=== PATIENT | male | born 1965 | race Caucasian/White ===

== ENCOUNTER → 2019-01-27 08:24 | Outpatient (CLI) | payer OTHER, SELFPAY ==
[2019-01-27 10:14] LABS: Add Manual Diff / Slide Review NO; Basophils Absolute Auto 0 /uL (0-100); Basophils Percent Auto 0.5 % (0-2); Eosinophils Absolute Auto 100 /uL (0-450); Eosinophils Percent Auto 2.6 % (2-4); Hematocrit 45.6 % (41-53); Hemoglobin 15.7 g/dL (13.5-17.5); Lymphocytes Absolute Auto 1700 /uL (1100-4500); Lymphocytes Percent Auto 34.1 % (25-40); Mean Corpuscular HGB Conc 34.5 % (30-36); Mean Corpuscular Hemoglobin 30.3 PG (26-34); Mean Corpuscular Volume 87.7 fL (80-100); Monocytes Absolute Auto 300 /uL (0-900); Monocytes Percent Auto 6.7 % (3-14); Neutrophils Absolute Auto 2800 /uL (1500-7000); Neutrophils Percent Auto 56.1 % (50-75); Platelet Count 259 X10^3/uL (150-400); Red Cell Distribution Width 13.3 % (11.6-14.8); White Blood Cell Count 4.9 X10^3/uL (4.5-11.0)
[2019-01-27 10:25] LABS: Alanine Aminotransferase 35 IU/L (21-72); Albumin 4.3 g/dL (3.5-5.0); Albumin Globulin Ratio 1.5 (1.0-2.8); Alkaline Phosphatase 49 U/L (38-126); Aspartate Aminotransferase 32 IU/L (17-59); BUN Creatinine Ratio 23.3 (6-22); Blood Urea Nitrogen 14 mg/dL (9-20); Calcium 9.3 mg/dL (8.4-10.2); Carbon Dioxide 25 mmol/L (22-32); Chloride 105 mmol/L (98-107); Cholesterol 151 mg/dL (140-199); Estimated Glomerular Filt Rate > 60.0 mL/min (>60); Globulin 2.9 g/dL (1.7-4.1); Glucose 92 mg/dL (70-100); HDL Cholesterol 43 mg/dL (40-60); HEMOLYSIS < 15 (0-50); LDL Cholesterol Calculated 94 mg/dL (<100); Potassium 3.7 mmol/L (3.4-5.1); Sodium 142 mmol/L (137-145); Total Protein 7.2 g/dL (6.3-8.2); Triglycerides 72 mg/dL (35-150)
[2019-01-27 10:52] LABS: TSH w/ Reflex to FT4 1.64 uIU/mL (0.47-4.68)
== END ==
PROVIDERS: PCP Internal Medicine; Visit Provider Nurse Practitioner
DX: G80.9 Cerebral palsy, unspecified (principal); J98.01 Acute bronchospasm; R06.2 Wheezing; R26.89 Other abnormalities of gait and mobility; J30.2 Other seasonal allergic rhinitis; Z87.09 Personal history of other diseases of the respiratory system; Z13.220 Encounter for screening for lipoid disorders; Z00.00 Encounter for general adult medical examination without abnormal findings; Z12.5 Encounter for screening for malignant neoplasm of prostate
CPT/HCPCS: 36415; 80053; 80061; 84153; 84443; 85025

== ENCOUNTER → 2020-11-13 12:29 | Outpatient (CLI) | payer OTHER, SELFPAY ==
[2020-11-13 13:24] LABS: COVID19 -Nasal RAPID Negative (Negative)
== END ==
PROVIDERS: PCP Nurse Practitioner; Referring Provider Internal Medicine; Visit Provider Internal Medicine
DX: Z20.822 Contact with and (suspected) exposure to COVID-19 (principal)
CPT/HCPCS: 87635; 94060; 94729; C9803

== ENCOUNTER → 2020-11-13 12:33 | Outpatient (CLI) | payer OTHER, SELFPAY ==
--- NOTE | 2020-11-19 09:56 | PM.PFT.1 ---
Pulmonary Function Test Referral & Results Date Patient Seen: 11/13/20 Requesting provider: Honey Franco Results: The spirometry demonstrates an FVC of 3.42 L which is 68% of predicted. The FEV1 was measured at 2.68 L which is 69% of predicted. The FEV1/FVC ratio was 78 which is 101% of predicted. Following the administration of bronchodilator there was no appreciable change. Lung volumes show an SVC of 2.69 L which is 55% of predicted. The diffusing capacity was measured at 36 which is 111% of predicted. The maximum voluntary ventilation was significantly reduced Interpretation: This study demonstrates mild obstructive lung disease based on reduction FEV1 although FEV1/FVC ratio is preserved and there is no evidence of benefit following bronchodilator There is a significant reduction in lung volumes with SVC being 55% of normal as above. Altogether there is evidence of probably severe neural muscular disease rather than any evidence of obstructive lung disease as the reduced lung volumes probably explain the reduction FEV1 Per performing instrument and electrical technician, results were not reproducible and dated is probably only marginally acceptable due to patient's physical condition with cerebral palsy, and for this reason significant clinical correlation is suggested
== END ==
PROVIDERS: PCP Nurse Practitioner; Referring Provider Nurse Practitioner; Visit Provider Nurse Practitioner
DX: Z23 Encounter for immunization (principal)
CPT/HCPCS: 94060; 94729

== ENCOUNTER 2021-02-27 13:45 | Outpatient (RCR) | payer OTHER, SELFPAY ==
--- NOTE | 2020-12-22 14:30 | PT.OPPOC ---
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 Provider Specialty: [facility] Address: [address] [place] [address], [facility] Email: [email or web address] Plan Of Care PT-OP-T Assessment and Plan Start: 12/22/20 17:33 Freq: Status: Active Protocol: Document 12/22/20 13:45 DCW (Rec: 12/23/20 09:44 DCW [id number]) Physical Therapy Assessment Rehab Potential Rehabilitation Potential Fair Evaluation Complexity Number of Personal Factors/Comorbidities 3 or More Number of Body Systems Impaired 4 or More Clinical Presentation at Evaluation Unstable Impairments Impairments Activity Tolerance,Balance, Coordination,Functional Activities,Functional Mobility ,Gait,Posture,ROM,Soft Tissue Mobility,Strength,Tone, Transfers Goals Four Impairment Pt has suffered multiple falls over the last three months at home Method Consultant Goal (LTG) Pt to report no falls at home for one month LTG Duration 03/22/21 Three Impairment Pt requires Mod Ax1 to perform sit->stand from wheelchair Method Consultant Goal (LTG) Pt to perform CGA sit->stand from wheelchair height to improve independent transfers LTG Duration 03/22/21 Two Impairment Severely limited lower extremity ROM Short Term Goal (STG) Pt to reduce hip flexion contracture to allow hips to rest at neutral to allow for pt to stand up straight STG Duration 02/05/21 Mcc Goal (LTG) Bilateral knee AROM to improve to 10?-90? LTG Duration 03/22/21 One Impairment Pt does not have an appropriate home exercise program Short Term Goal (STG) Pt to be independent and compliant with an appropriate HEP STG Duration 02/05/21 Assessment Summary Assessment Pt presents with a highly complex physical therapy evaluation. Pt displays severe lead-pipe rigidity secondary to his cerebral palsy. and has had a recent decline in function, resulting in decreased activity tolerance, decreased gait, increased tone , increased falls risk, worsening weakness, and decreased independence for transfers. Pt's rigidity is clearly the biggest limiting factor, his current AROM of his knees is only 30-52? (L) and 20-40? (R), which makes his sit->stand incredibly difficult, as he cannot get his feet under him. Pt also exhibits a hip flexor contracture due to his increased sitting time, which makes it impossible for him to stand up straight, which obviously affects his gait. Pt 's tone makes him walk with a step-to gait pattern, his has substantial difficulty advancing his left foot due to foot drag, increasing his falls risk. Pt may benefit from skilled therapy, at first focusing on decreasing tone through stretching, rhythmic mobilization, and relaxation, and then shifting to gait and mobility training. Due to time constraints, only the gait section of the Tinetti was able to be performed, however pt only scored a 2/12. Physical Therapy Plan Frequency and Duration Frequency of Treatment 2x/Week Duration of Treatment 90 days Plan of Care Start Date 12/22/20 Plan of Care End Date 03/22/21 Therapeutic Interventions Therapeutic Interventions Balance Training,Coordination Training,Gait Training,Home Exercise Program,Joint Mobilizations,Manual Therapy, Neuromuscular Re-education, Patient/Caregiver Education, Self-Care/Home Management,Soft Tissue Mobilization, Therapeutic Activities, Therapeutic Exercises, Wheelchair Management Modalities Cold Pack/Ice Massage,Electric Stimulation,Hot Packs, Ultrasound Next Visit Focus/Plan Next Note Type Treatment Note Next Visit Plan Balance testing, mobility training, gait training, flexibility/stretching, strengthening Plan of Care Dates Plan of Care Start Date 12/22/20 Plan of Care End Date 03/22/21 Electronically Signed by: Hank Cobb, PT 12/23/20 2731 Please Sign and Return: I have reviewed this Plan of Care and certify that the skilled therapy services above are required to meet the patient?s needs. Physician Signature Date Printed Name and Credentials Clinical Instructor Signature Printed Name and Credentials
--- NOTE | 2020-12-22 14:30 | PT.OIE ---
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 Physical Therapy Initial Evaluation PT-OP-A Visit Information Start: 12/22/20 17:33 Freq: Status: Active Protocol: Document 12/22/20 13:45 DCW (Rec: 12/22/20 17:44 DCW [id number]) Out-Patient Physical Therapy Visit Information Visit Information Visit Type Initial Evaluation Visit Start Time 13:45 Visit Stop Time 14:30 Total Visit Minutes 45 Visit Number 1 Number of VACUUM PAN TENDER Visits 0 Evaluation Information Evaluation Date 12/22/20 PT-OP-B Current Condition Start: 12/22/20 17:33 Freq: Status: Active Protocol: Document 12/22/20 13:45 DCW (Rec: 12/22/20 17:44 DCW [id number]) Current Condition History of Current Condition Onset Date Life-long history of CP Current Complaints Cerebral Palsy, deconditioning , rigidity/stiffness, declining mobility History of Current Condition Pt is a 55 year old male presenting with a life-long history of Cerebral Palsy. Pt notes that over the past few years, his mobility, flexibility, and gait have all begun to decline, however it has significantly worsened over the last one year. Pt notes that ~10 year ago, he started using more mobility aides, like a scooter and a lift in his vehicle, but then I wasn't working myself, so I started to get worse. Pt notes that with all the shut- downs and quarantine, he has been spending even more time sitting around, and has gotten much worse. Pt notes that he had been using a cane around his house, and a walker out in the community, but gradually over the last year he has had to transition to a walker at home and a wheelchair in the community, as well as his mobility scooter when out for longer periods of time, like when grocery shopping. Even with using a walker, he has been falling a lot more the last three months. Pt has also been having significant SOB recently, and has been struggling more with his speech, which is currently very slowed, labored, and slurred. A year and a half ago, I was able to speak. It slurred a bit, but never to this point. Treatment Goals Patient/Caregiver Goals I need to loosen up and get stronger so I can move better. PT-OP-C Subjective Start: 12/22/20 17:33 Freq: Status: Active Protocol: Document 12/22/20 13:45 DCW (Rec: 12/22/20 17:44 DCW [id number]) OP-PT Subjective Patient Comments Patient Comments I am just very very stiff. Patient Reported Progress Worse Patient Questionnaires ABC- Activity Specific Balance Confidence Scale ABC Score 26.25% ABC Functional Impairment 60 to <80% Impaired (Score 21- 40) PT-OP-D Balance Start: 12/22/20 17:33 Freq: Status: Active Protocol: Document 12/22/20 13:45 DCW (Rec: 12/22/20 17:46 DCW [id number]) Tinetti Balance Assessment Gait and Step Initiation of Gait Hesitancy, mult. attempts Right Foot Step Length Does pass stance foot Right Foot Step Height Completely clears floor Left Foot Step Length Does not pass stance foot Left Foot Step Height Does not clear floor Step Description Step Symmetry Step length not equal Step Continuity Stopping or discontinuity Gait Description Path Description Marked deviation Trunk Description Marked sway or uses aide Walking Stance Heels apart Scoring and Interpretation Tinetti Composite Score (points) 2 PT-OP-E Functional Tests Start: 12/22/20 17:46 Freq: Status: Active Protocol: Document 12/22/20 13:45 DCW (Rec: 12/22/20 17:47 DCW [id number]) Functional Tests Tinetti Balance and Gait Assessment Gait Score 2 Gait Score Impairment Rating 80 to <100% Impaired (Score 1- 2) PT-OP-F Manual Assessment Start: 12/22/20 17:33 Freq: Status: Active Protocol: Document 12/22/20 13:45 DCW (Rec: 12/22/20 17:56 DCW [id number]) Manual Assessments Joint Mobility Assessment Joint Mobility Assessment Lead-pipe rigidity throughout bilateral lower extremities, severely limiting mobility, gait, transfers PT-OP-G Mobility & Gait Start: 12/22/20 17:33 Freq: Status: Active Protocol: Document 12/22/20 13:45 DCW (Rec: 12/22/20 17:56 DCW [id number]) OP Mobility Evaluation Bed Mobility Supine to and from Sit SBA Transfers Sit to Stand Mod Ax1 /c gait belt, arm rest , standard walker OP Gait Assessment Gait Gait Assistance Required: Contact Guard Assist Distance (Feet) 50 Able to Maintain Weight Bearing Status Yes During Gait Assistive Devices Assistive Device Gait Belt,Standard Walker Gait Deviations General Gait Pattern Ataxic,Decreased Stride Length ,Decreased Feet Clearance, Festinating,Flexed Trunk, Lateral Trunk Lean,Narrow Based Gait,Step-to Gait Factors Limiting Gait Function Factors Limiting Gait Function Abnormal Tonal Influences, Decreased Activity Tolerance, Decreased Strength,Limited Range of Motion,Poor Balance, Poor Safety Awareness, Respiratory Distress Comments Gait Comments Pt ambulates using standard walker, severe rigidity, step- to gait pattern, with right first, left advancing to right . Difficulty advancing left due to toe drag/plantar flexed position due to rigidity, right foot external rotqation to 45? PT-OP-K Range of Motion Start: 12/22/20 17:33 Freq: Status: Active Protocol: Document 12/22/20 13:45 DCW (Rec: 12/22/20 17:56 DCW [id number]) Hip Goniometric Range of Motion Hip Bilateral Comments Pt presents with a hip flexion contracture of 20?, minimal ability to move hips outside of presenting position Knee Goniometric Range of Motion Knee Right Knee ROM WFL No Patient Position Sitting Flexion Active (degrees) 40 Flexion Passive (degrees) 70 Extension Active (degrees) 20 Extension Passive (degrees) 15 Left Knee ROM WFL No Patient Position Sitting Flexion Active (degrees) 52 Flexion Passive (degrees) 74 Extension Active (degrees) 30 Extension Passive (degrees) 24 Knee ROM Limitations Knee ROM Limitations Soft Tissue Tightness, Contracture,Muscle Tone Ankle and Foot Goniometric Range of Motion Ankle and Foot Right Passive Ankle/Foot ROM WFL No Testing Position Sitting Plantarflexion 50 Comments Dorsiflexion -10? from neutral Right Active Ankle/Foot ROM WFL No Testing Position Sitting Plantarflexion 40 Comments Dorsiflexion -20? from neutral Left Passive Ankle/Foot ROM WFL No Testing Position Sitting Dorsiflexion with Knee Extended 0 Plantarflexion 40 Left Active Ankle/Foot ROM WFL No Testing Position Sitting Plantarflexion 30 Comments Dorsiflexion -15? from neutral PT-OP-T Assessment and Plan Start: 12/22/20 17:33 Freq: Status: Active Protocol: Document 12/22/20 13:45 DCW (Rec: 12/23/20 09:44 DCW [id number]) Physical Therapy Assessment Rehab Potential Rehabilitation Potential Fair Evaluation Complexity Number of Personal Factors/Comorbidities 3 or More Number of Body Systems Impaired 4 or More Clinical Presentation at Evaluation Unstable Impairments Impairments Activity Tolerance,Balance, Coordination,Functional Activities,Functional Mobility ,Gait,Posture,ROM,Soft Tissue Mobility,Strength,Tone, Transfers Goals Four Impairment Pt has suffered multiple falls over the last three months at home Fpc Goal (LTG) Pt to report no falls at home for one month LTG Duration 03/22/21 Three Impairment Pt requires Mod Ax1 to perform sit->stand from wheelchair Fpc Goal (LTG) Pt to perform CGA sit->stand from wheelchair height to improve independent transfers LTG Duration 03/22/21 Two Impairment Severely limited lower extremity ROM Short Term Goal (STG) Pt to reduce hip flexion contracture to allow hips to rest at neutral to allow for pt to stand up straight STG Duration 02/05/21 Fpc Goal (LTG) Bilateral knee AROM to improve to 10?-90? LTG Duration 03/22/21 One Impairment Pt does not have an appropriate home exercise program Short Term Goal (STG) Pt to be independent and compliant with an appropriate HEP STG Duration 02/05/21 Assessment Summary Assessment Pt presents with a highly complex physical therapy evaluation. Pt displays severe lead-pipe rigidity secondary to his cerebral palsy. and has had a recent decline in function, resulting in decreased activity tolerance, decreased gait, increased tone , increased falls risk, worsening weakness, and decreased independence for transfers. Pt's rigidity is clearly the biggest limiting factor, his current AROM of his knees is only 30-52? (L) and 20-40? (R), which makes his sit->stand incredibly difficult, as he cannot get his feet under him. Pt also exhibits a hip flexor contracture due to his increased sitting time, which makes it impossible for him to stand up straight, which obviously affects his gait. Pt 's tone makes him walk with a step-to gait pattern, his has substantial difficulty advancing his left foot due to foot drag, increasing his falls risk. Pt may benefit from skilled therapy, at first focusing on decreasing tone through stretching, rhythmic mobilization, and relaxation, and then shifting to gait and mobility training. Due to time constraints, only the gait section of the Tinetti was able to be performed, however pt only scored a 2/12. Physical Therapy Plan Frequency and Duration Frequency of Treatment 2x/Week Duration of Treatment 90 days Plan of Care Start Date 12/22/20 Plan of Care End Date 03/22/21 Therapeutic Interventions Therapeutic Interventions Balance Training,Coordination Training,Gait Training,Home Exercise Program,Joint Mobilizations,Manual Therapy, Neuromuscular Re-education, Patient/Caregiver Education, Self-Care/Home Management,Soft Tissue Mobilization, Therapeutic Activities, Therapeutic Exercises, Wheelchair Management Modalities Cold Pack/Ice Massage,Electric Stimulation,Hot Packs, Ultrasound Next Visit Focus/Plan Next Note Type Treatment Note Next Visit Plan Balance testing, mobility training, gait training, flexibility/stretching, strengthening
--- NOTE | 2020-12-25 14:30 | PT.OTN ---
Current Diagnoses Cerebral palsy, unspecified (12/25/20) Sarcopenia (12/25/20) Other abnormalities of gait and mobility (12/25/20) Other specified health status (12/25/20) Physical Therapy Treatment Note PT-OP-A Visit Information Start: 12/22/20 17:33 Freq: Status: Active Protocol: Document 12/25/20 13:45 DCW (Rec: 12/25/20 14:30 DCW [id number]) Out-Patient Physical Therapy Visit Information Visit Information Visit Type Treatment Note Visit Start Time 13:45 Visit Stop Time 14:30 Total Visit Minutes 45 Visit Number 2 Number of GEOGRAPHIC INFORMATION SCIENTIST Visits 0 Evaluation Information Evaluation Date 12/22/20 PT-OP-B Current Condition Start: 12/22/20 17:33 Freq: Status: Active Protocol: Document 12/22/20 13:45 DCW (Rec: 12/22/20 17:44 DCW [id number]) Current Condition History of Current Condition Onset Date Life-long history of CP Current Complaints Cerebral Palsy, deconditioning , rigidity/stiffness, declining mobility History of Current Condition Pt is a 55 year old male presenting with a life-long history of Cerebral Palsy. Pt notes that over the past few years, his mobility, flexibility, and gait have all begun to decline, however it has significantly worsened over the last one year. Pt notes that ~10 year ago, he started using more mobility aides, like a scooter and a lift in his vehicle, but then I wasn't working myself, so I started to get worse. Pt notes that with all the shut- downs and quarantine, he has been spending even more time sitting around, and has gotten much worse. Pt notes that he had been using a cane around his house, and a walker out in the community, but gradually over the last year he has had to transition to a walker at home and a wheelchair in the community, as well as his mobility scooter when out for longer periods of time, like when grocery shopping. Even with using a walker, he has been falling a lot more the last three months. Pt has also been having significant SOB recently, and has been struggling more with his speech, which is currently very slowed, labored, and slurred. A year and a half ago, I was able to speak. It slurred a bit, but never to this point. Treatment Goals Patient/Caregiver Goals I need to loosen up and get stronger so I can move better. PT-OP-C Subjective Start: 12/22/20 17:33 Freq: Status: Active Protocol: Document 12/25/20 13:45 DCW (Rec: 12/25/20 14:30 DCW [id number]) OP-PT Subjective Patient Comments Patient Comments Pt notes he is okay today, just started Speech therapy prior to his PT appointment today. PT-OP-D Balance Start: 12/22/20 17:33 Freq: Status: Active Protocol: Document 12/22/20 13:45 DCW (Rec: 12/22/20 17:46 DCW [id number]) Tinetti Balance Assessment Gait and Step Initiation of Gait Hesitancy, mult. attempts Right Foot Step Length Does pass stance foot Right Foot Step Height Completely clears floor Left Foot Step Length Does not pass stance foot Left Foot Step Height Does not clear floor Step Description Step Symmetry Step length not equal Step Continuity Stopping or discontinuity Gait Description Path Description Marked deviation Trunk Description Marked sway or uses aide Walking Stance Heels apart Scoring and Interpretation Tinetti Composite Score (points) 2 PT-OP-E Functional Tests Start: 12/22/20 17:46 Freq: Status: Active Protocol: Document 12/22/20 13:45 DCW (Rec: 12/22/20 17:47 DCW [id number]) Functional Tests Tinetti Balance and Gait Assessment Gait Score 2 Gait Score Impairment Rating 80 to <100% Impaired (Score 1- 2) PT-OP-F Manual Assessment Start: 12/22/20 17:33 Freq: Status: Active Protocol: Document 12/22/20 13:45 DCW (Rec: 12/22/20 17:56 DCW [id number]) Manual Assessments Joint Mobility Assessment Joint Mobility Assessment Lead-pipe rigidity throughout bilateral lower extremities, severely limiting mobility, gait, transfers PT-OP-G Mobility & Gait Start: 12/22/20 17:33 Freq: Status: Active Protocol: Document 12/22/20 13:45 DCW (Rec: 12/22/20 17:56 DCW [id number]) OP Mobility Evaluation Bed Mobility Supine to and from Sit SBA Transfers Sit to Stand Mod Ax1 /c gait belt, arm rest , standard walker OP Gait Assessment Gait Gait Assistance Required: Contact Guard Assist Distance (Feet) 50 Able to Maintain Weight Bearing Status Yes During Gait Assistive Devices Assistive Device Gait Belt,Standard Walker Gait Deviations General Gait Pattern Ataxic,Decreased Stride Length ,Decreased Feet Clearance, Festinating,Flexed Trunk, Lateral Trunk Lean,Narrow Based Gait,Step-to Gait Factors Limiting Gait Function Factors Limiting Gait Function Abnormal Tonal Influences, Decreased Activity Tolerance, Decreased Strength,Limited Range of Motion,Poor Balance, Poor Safety Awareness, Respiratory Distress Comments Gait Comments Pt ambulates using standard walker, severe rigidity, step- to gait pattern, with right first, left advancing to right . Difficulty advancing left due to toe drag/plantar flexed position due to rigidity, right foot external rotqation to 45? PT-OP-K Range of Motion Start: 12/22/20 17:33 Freq: Status: Active Protocol: Document 12/22/20 13:45 DCW (Rec: 12/22/20 17:56 DCW [id number]) Hip Goniometric Range of Motion Hip Bilateral Comments Pt presents with a hip flexion contracture of 20?, minimal ability to move hips outside of presenting position Knee Goniometric Range of Motion Knee Right Knee ROM WFL No Patient Position Sitting Flexion Active (degrees) 40 Flexion Passive (degrees) 70 Extension Active (degrees) 20 Extension Passive (degrees) 15 Left Knee ROM WFL No Patient Position Sitting Flexion Active (degrees) 52 Flexion Passive (degrees) 74 Extension Active (degrees) 30 Extension Passive (degrees) 24 Knee ROM Limitations Knee ROM Limitations Soft Tissue Tightness, Contracture,Muscle Tone Ankle and Foot Goniometric Range of Motion Ankle and Foot Right Passive Ankle/Foot ROM WFL No Testing Position Sitting Plantarflexion 50 Comments Dorsiflexion -10? from neutral Right Active Ankle/Foot ROM WFL No Testing Position Sitting Plantarflexion 40 Comments Dorsiflexion -20? from neutral Left Passive Ankle/Foot ROM WFL No Testing Position Sitting Dorsiflexion with Knee Extended 0 Plantarflexion 40 Left Active Ankle/Foot ROM WFL No Testing Position Sitting Plantarflexion 30 Comments Dorsiflexion -15? from neutral PT-OP-Q Treatments Start: 12/22/20 17:33 Freq: Status: Active Protocol: Document 12/25/20 13:45 DCW (Rec: 12/25/20 14:30 DCW [id number]) Gym Equipment Therapeutic Ball 1 Exercise Details Low Trunk Rotation Ball Size/Color Blue - 45 cm Body Position Supine Therapeutic Exercises Sidelying Exercises 1 Sidelying Exercise Name Open book /c rhythmic stretch at end Side bilateral Manual Therapy Treatment Soft Tissue Mobilization 4 Body Location B Gastroc Mobilization Type Oscillations,Strumming, Sustained Pressure,Other Comments Stretching/tissue elongation Rhythmic initiation 3 Body Location B Adductors Mobilization Type Oscillations,Strumming, Sustained Pressure,Other Comments Stretching/tissue elongation Rhythmic initiation 2 Body Location B Quads Mobilization Type Oscillations,Strumming, Sustained Pressure,Other Comments Stretching/tissue elongation Rhythmic initiation 1 Body Location B Hamstrings Mobilization Type Oscillations,Strumming, Sustained Pressure,Other Comments Stretching/tissue elongation Rhythmic initiation PT-OP-T Assessment and Plan Start: 12/22/20 17:33 Freq: Status: Active Protocol: Document 12/25/20 13:45 DCW (Rec: 12/25/20 14:30 DCW [id number]) Physical Therapy Assessment Impairments Impairments Activity Tolerance,Balance, Coordination,Functional Activities,Functional Mobility ,Gait,Posture,ROM,Soft Tissue Mobility,Strength,Tone, Transfers Goals Four Impairment Pt has suffered multiple falls over the last three months at home Template Cutter Goal (LTG) Pt to report no falls at home for one month LTG Duration 03/22/21 Three Impairment Pt requires Mod Ax1 to perform sit->stand from wheelchair Group Home Goal (LTG) Pt to perform CGA sit->stand from wheelchair height to improve independent transfers LTG Duration 03/22/21 Two Impairment Severely limited lower extremity ROM Short Term Goal (STG) Pt to reduce hip flexion contracture to allow hips to rest at neutral to allow for pt to stand up straight STG Duration 02/05/21 Template Cutter Goal (LTG) Bilateral knee AROM to improve to 10?-90? LTG Duration 03/22/21 One Impairment Pt does not have an appropriate home exercise program Short Term Goal (STG) Pt to be independent and compliant with an appropriate HEP STG Duration 02/05/21 Assessment Summary Assessment Pt responded fairly well to stretching and flexibility exercises, especially with addition of rhythmic movements . Pt able to transfer bed->w/c SBA, and was sitting with his feet on the footrests afterward, much better than his feet straight out in front of him when he arrived. Physical Therapy Plan Frequency and Duration Frequency of Treatment 2x/Week Duration of Treatment 90 days Plan of Care Start Date 12/22/20 Plan of Care End Date 03/22/21 Therapeutic Interventions Therapeutic Interventions Balance Training,Coordination Training,Gait Training,Home Exercise Program,Joint Mobilizations,Manual Therapy, Neuromuscular Re-education, Patient/Caregiver Education, Self-Care/Home Management,Soft Tissue Mobilization, Therapeutic Activities, Therapeutic Exercises, Wheelchair Management Modalities Cold Pack/Ice Massage,Electric Stimulation,Hot Packs, Ultrasound Next Visit Focus/Plan Next Note Type Treatment Note Next Visit Plan Balance testing, mobility training, gait training, flexibility/stretching, strengthening
--- NOTE | 2020-12-30 14:56 | PT.OTN ---
Current Diagnoses Cerebral palsy, unspecified (12/30/20) Sarcopenia (12/30/20) Other abnormalities of gait and mobility (12/30/20) Other specified health status (12/30/20) Physical Therapy Treatment Note PT-OP-A Visit Information Start: 12/22/20 17:33 Freq: Status: Active Protocol: Document 12/30/20 13:45 DCW (Rec: 12/30/20 14:56 DCW [id number]) Out-Patient Physical Therapy Visit Information Visit Information Visit Type Treatment Note Visit Start Time 13:45 Visit Stop Time 14:30 Total Visit Minutes 45 Visit Number 3 Number of BUSINESS LIAISON OFFICER Visits 0 Evaluation Information Evaluation Date 12/22/20 PT-OP-B Current Condition Start: 12/22/20 17:33 Freq: Status: Active Protocol: Document 12/22/20 13:45 DCW (Rec: 12/22/20 17:44 DCW [id number]) Current Condition History of Current Condition Onset Date Life-long history of CP Current Complaints Cerebral Palsy, deconditioning , rigidity/stiffness, declining mobility History of Current Condition Pt is a 55 year old male presenting with a life-long history of Cerebral Palsy. Pt notes that over the past few years, his mobility, flexibility, and gait have all begun to decline, however it has significantly worsened over the last one year. Pt notes that ~10 year ago, he started using more mobility aides, like a scooter and a lift in his vehicle, but then I wasn't working myself, so I started to get worse. Pt notes that with all the shut- downs and quarantine, he has been spending even more time sitting around, and has gotten much worse. Pt notes that he had been using a cane around his house, and a walker out in the community, but gradually over the last year he has had to transition to a walker at home and a wheelchair in the community, as well as his mobility scooter when out for longer periods of time, like when grocery shopping. Even with using a walker, he has been falling a lot more the last three months. Pt has also been having significant SOB recently, and has been struggling more with his speech, which is currently very slowed, labored, and slurred. A year and a half ago, I was able to speak. It slurred a bit, but never to this point. Treatment Goals Patient/Caregiver Goals I need to loosen up and get stronger so I can move better. PT-OP-C Subjective Start: 12/22/20 17:33 Freq: Status: Active Protocol: Document 12/30/20 13:45 DCW (Rec: 12/30/20 14:56 DCW [id number]) OP-PT Subjective Patient Comments Patient Comments Pt reports he received his second covid vaccination Tuesday, and was down and out the next day. Does note that all weekend, things seemed to work a little bit easier following his PT appointment on . PT-OP-D Balance Start: 12/22/20 17:33 Freq: Status: Active Protocol: Document 12/22/20 13:45 DCW (Rec: 12/22/20 17:46 DCW [id number]) Tinetti Balance Assessment Gait and Step Initiation of Gait Hesitancy, mult. attempts Right Foot Step Length Does pass stance foot Right Foot Step Height Completely clears floor Left Foot Step Length Does not pass stance foot Left Foot Step Height Does not clear floor Step Description Step Symmetry Step length not equal Step Continuity Stopping or discontinuity Gait Description Path Description Marked deviation Trunk Description Marked sway or uses aide Walking Stance Heels apart Scoring and Interpretation Tinetti Composite Score (points) 2 PT-OP-E Functional Tests Start: 12/22/20 17:46 Freq: Status: Active Protocol: Document 12/22/20 13:45 DCW (Rec: 12/22/20 17:47 DCW [id number]) Functional Tests Tinetti Balance and Gait Assessment Gait Score 2 Gait Score Impairment Rating 80 to <100% Impaired (Score 1- 2) PT-OP-F Manual Assessment Start: 12/22/20 17:33 Freq: Status: Active Protocol: Document 12/22/20 13:45 DCW (Rec: 12/22/20 17:56 DCW [id number]) Manual Assessments Joint Mobility Assessment Joint Mobility Assessment Lead-pipe rigidity throughout bilateral lower extremities, severely limiting mobility, gait, transfers PT-OP-G Mobility & Gait Start: 12/22/20 17:33 Freq: Status: Active Protocol: Document 12/22/20 13:45 DCW (Rec: 12/22/20 17:56 DCW [id number]) OP Mobility Evaluation Bed Mobility Supine to and from Sit SBA Transfers Sit to Stand Mod Ax1 /c gait belt, arm rest , standard walker OP Gait Assessment Gait Gait Assistance Required: Contact Guard Assist Distance (Feet) 50 Able to Maintain Weight Bearing Status Yes During Gait Assistive Devices Assistive Device Gait Belt,Standard Walker Gait Deviations General Gait Pattern Ataxic,Decreased Stride Length ,Decreased Feet Clearance, Festinating,Flexed Trunk, Lateral Trunk Lean,Narrow Based Gait,Step-to Gait Factors Limiting Gait Function Factors Limiting Gait Function Abnormal Tonal Influences, Decreased Activity Tolerance, Decreased Strength,Limited Range of Motion,Poor Balance, Poor Safety Awareness, Respiratory Distress Comments Gait Comments Pt ambulates using standard walker, severe rigidity, step- to gait pattern, with right first, left advancing to right . Difficulty advancing left due to toe drag/plantar flexed position due to rigidity, right foot external rotqation to 45? PT-OP-K Range of Motion Start: 12/22/20 17:33 Freq: Status: Active Protocol: Document 12/22/20 13:45 DCW (Rec: 12/22/20 17:56 DCW [id number]) Hip Goniometric Range of Motion Hip Bilateral Comments Pt presents with a hip flexion contracture of 20?, minimal ability to move hips outside of presenting position Knee Goniometric Range of Motion Knee Right Knee ROM WFL No Patient Position Sitting Flexion Active (degrees) 40 Flexion Passive (degrees) 70 Extension Active (degrees) 20 Extension Passive (degrees) 15 Left Knee ROM WFL No Patient Position Sitting Flexion Active (degrees) 52 Flexion Passive (degrees) 74 Extension Active (degrees) 30 Extension Passive (degrees) 24 Knee ROM Limitations Knee ROM Limitations Soft Tissue Tightness, Contracture,Muscle Tone Ankle and Foot Goniometric Range of Motion Ankle and Foot Right Passive Ankle/Foot ROM WFL No Testing Position Sitting Plantarflexion 50 Comments Dorsiflexion -10? from neutral Right Active Ankle/Foot ROM WFL No Testing Position Sitting Plantarflexion 40 Comments Dorsiflexion -20? from neutral Left Passive Ankle/Foot ROM WFL No Testing Position Sitting Dorsiflexion with Knee Extended 0 Plantarflexion 40 Left Active Ankle/Foot ROM WFL No Testing Position Sitting Plantarflexion 30 Comments Dorsiflexion -15? from neutral PT-OP-Q Treatments Start: 12/22/20 17:33 Freq: Status: Active Protocol: Document 12/30/20 13:45 DCW (Rec: 12/30/20 14:56 DCW [id number]) Gym Equipment Therapeutic Ball 1 Exercise Details Low Trunk Rotation Ball Size/Color Blue - 45 cm Body Position Supine Therapeutic Exercises Sidelying Exercises 1 Sidelying Exercise Name Open book /c rhythmic stretch at end Side bilateral Manual Therapy Treatment Soft Tissue Mobilization 4 Body Location B Gastroc Mobilization Type Oscillations,Strumming, Sustained Pressure,Other Comments Stretching/tissue elongation Rhythmic initiation 3 Body Location B Adductors Mobilization Type Oscillations,Strumming, Sustained Pressure,Other Comments Stretching/tissue elongation Rhythmic initiation 2 Body Location B Quads Mobilization Type Oscillations,Strumming, Sustained Pressure,Other Comments Stretching/tissue elongation Rhythmic initiation 1 Body Location B Hamstrings Mobilization Type Oscillations,Strumming, Sustained Pressure,Other Comments Stretching/tissue elongation Rhythmic initiation PT-OP-T Assessment and Plan Start: 12/22/20 17:33 Freq: Status: Active Protocol: Document 12/30/20 13:45 DCW (Rec: 12/30/20 14:56 DCW [id number]) Physical Therapy Assessment Impairments Impairments Activity Tolerance,Balance, Coordination,Functional Activities,Functional Mobility ,Gait,Posture,ROM,Soft Tissue Mobility,Strength,Tone, Transfers Goals Four Impairment Pt has suffered multiple falls over the last three months at home Window Cutter Goal (LTG) Pt to report no falls at home for one month LTG Duration 03/22/21 Three Impairment Pt requires Mod Ax1 to perform sit->stand from wheelchair Fpc Goal (LTG) Pt to perform CGA sit->stand from wheelchair height to improve independent transfers LTG Duration 03/22/21 Two Impairment Severely limited lower extremity ROM Short Term Goal (STG) Pt to reduce hip flexion contracture to allow hips to rest at neutral to allow for pt to stand up straight STG Duration 02/05/21 Window Cutter Goal (LTG) Bilateral knee AROM to improve to 10?-90? LTG Duration 03/22/21 One Impairment Pt does not have an appropriate home exercise program Short Term Goal (STG) Pt to be independent and compliant with an appropriate HEP STG Duration 02/05/21 Assessment Summary Assessment Pt appears to be doing very well, responding to therapy, showing improved flexibility, mobility, and transfers today after only one treatment session. Physical Therapy Plan Frequency and Duration Frequency of Treatment 2x/Week Duration of Treatment 90 days Plan of Care Start Date 12/22/20 Plan of Care End Date 03/22/21 Therapeutic Interventions Therapeutic Interventions Balance Training,Coordination Training,Gait Training,Home Exercise Program,Joint Mobilizations,Manual Therapy, Neuromuscular Re-education, Patient/Caregiver Education, Self-Care/Home Management,Soft Tissue Mobilization, Therapeutic Activities, Therapeutic Exercises, Wheelchair Management Modalities Cold Pack/Ice Massage,Electric Stimulation,Hot Packs, Ultrasound Next Visit Focus/Plan Next Note Type Treatment Note Next Visit Plan Balance testing, mobility training, gait training, flexibility/stretching, strengthening
--- NOTE | 2021-01-02 14:31 | PT.OTN ---
Current Diagnoses Cerebral palsy, unspecified (01/02/21) Sarcopenia (01/02/21) Other abnormalities of gait and mobility (01/02/21) Other specified health status (01/02/21) Physical Therapy Treatment Note PT-OP-A Visit Information Start: 12/22/20 17:33 Freq: Status: Active Protocol: Document 01/02/21 13:45 DCW (Rec: 01/02/21 14:31 DCW [id number]) Out-Patient Physical Therapy Visit Information Visit Information Visit Type Treatment Note Visit Start Time 13:45 Visit Stop Time 14:30 Total Visit Minutes 45 Visit Number 4 Number of ROUTE INSPECTOR Visits 0 Evaluation Information Evaluation Date 12/22/20 PT-OP-B Current Condition Start: 12/22/20 17:33 Freq: Status: Active Protocol: Document 12/22/20 13:45 DCW (Rec: 12/22/20 17:44 DCW [id number]) Current Condition History of Current Condition Onset Date Life-long history of CP Current Complaints Cerebral Palsy, deconditioning , rigidity/stiffness, declining mobility History of Current Condition Pt is a 55 year old male presenting with a life-long history of Cerebral Palsy. Pt notes that over the past few years, his mobility, flexibility, and gait have all begun to decline, however it has significantly worsened over the last one year. Pt notes that ~10 year ago, he started using more mobility aides, like a scooter and a lift in his vehicle, but then I wasn't working myself, so I started to get worse. Pt notes that with all the shut- downs and quarantine, he has been spending even more time sitting around, and has gotten much worse. Pt notes that he had been using a cane around his house, and a walker out in the community, but gradually over the last year he has had to transition to a walker at home and a wheelchair in the community, as well as his mobility scooter when out for longer periods of time, like when grocery shopping. Even with using a walker, he has been falling a lot more the last three months. Pt has also been having significant SOB recently, and has been struggling more with his speech, which is currently very slowed, labored, and slurred. A year and a half ago, I was able to speak. It slurred a bit, but never to this point. Treatment Goals Patient/Caregiver Goals I need to loosen up and get stronger so I can move better. PT-OP-C Subjective Start: 12/22/20 17:33 Freq: Status: Active Protocol: Document 01/02/21 13:45 DCW (Rec: 01/02/21 14:31 DCW [id number]) OP-PT Subjective Patient Comments Patient Comments Pt reports that he still feels things are looser since starting PT. PT-OP-D Balance Start: 12/22/20 17:33 Freq: Status: Active Protocol: Document 12/22/20 13:45 DCW (Rec: 12/22/20 17:46 DCW [id number]) Tinetti Balance Assessment Gait and Step Initiation of Gait Hesitancy, mult. attempts Right Foot Step Length Does pass stance foot Right Foot Step Height Completely clears floor Left Foot Step Length Does not pass stance foot Left Foot Step Height Does not clear floor Step Description Step Symmetry Step length not equal Step Continuity Stopping or discontinuity Gait Description Path Description Marked deviation Trunk Description Marked sway or uses aide Walking Stance Heels apart Scoring and Interpretation Tinetti Composite Score (points) 2 PT-OP-E Functional Tests Start: 12/22/20 17:46 Freq: Status: Active Protocol: Document 12/22/20 13:45 DCW (Rec: 12/22/20 17:47 DCW [id number]) Functional Tests Tinetti Balance and Gait Assessment Gait Score 2 Gait Score Impairment Rating 80 to <100% Impaired (Score 1- 2) PT-OP-F Manual Assessment Start: 12/22/20 17:33 Freq: Status: Active Protocol: Document 12/22/20 13:45 DCW (Rec: 12/22/20 17:56 DCW [id number]) Manual Assessments Joint Mobility Assessment Joint Mobility Assessment Lead-pipe rigidity throughout bilateral lower extremities, severely limiting mobility, gait, transfers PT-OP-G Mobility & Gait Start: 12/22/20 17:33 Freq: Status: Active Protocol: Document 12/22/20 13:45 DCW (Rec: 12/22/20 17:56 DCW [id number]) OP Mobility Evaluation Bed Mobility Supine to and from Sit SBA Transfers Sit to Stand Mod Ax1 /c gait belt, arm rest , standard walker OP Gait Assessment Gait Gait Assistance Required: Contact Guard Assist Distance (Feet) 50 Able to Maintain Weight Bearing Status Yes During Gait Assistive Devices Assistive Device Gait Belt,Standard Walker Gait Deviations General Gait Pattern Ataxic,Decreased Stride Length ,Decreased Feet Clearance, Festinating,Flexed Trunk, Lateral Trunk Lean,Narrow Based Gait,Step-to Gait Factors Limiting Gait Function Factors Limiting Gait Function Abnormal Tonal Influences, Decreased Activity Tolerance, Decreased Strength,Limited Range of Motion,Poor Balance, Poor Safety Awareness, Respiratory Distress Comments Gait Comments Pt ambulates using standard walker, severe rigidity, step- to gait pattern, with right first, left advancing to right . Difficulty advancing left due to toe drag/plantar flexed position due to rigidity, right foot external rotqation to 45? PT-OP-K Range of Motion Start: 12/22/20 17:33 Freq: Status: Active Protocol: Document 12/22/20 13:45 DCW (Rec: 12/22/20 17:56 DCW [id number]) Hip Goniometric Range of Motion Hip Bilateral Comments Pt presents with a hip flexion contracture of 20?, minimal ability to move hips outside of presenting position Knee Goniometric Range of Motion Knee Right Knee ROM WFL No Patient Position Sitting Flexion Active (degrees) 40 Flexion Passive (degrees) 70 Extension Active (degrees) 20 Extension Passive (degrees) 15 Left Knee ROM WFL No Patient Position Sitting Flexion Active (degrees) 52 Flexion Passive (degrees) 74 Extension Active (degrees) 30 Extension Passive (degrees) 24 Knee ROM Limitations Knee ROM Limitations Soft Tissue Tightness, Contracture,Muscle Tone Ankle and Foot Goniometric Range of Motion Ankle and Foot Right Passive Ankle/Foot ROM WFL No Testing Position Sitting Plantarflexion 50 Comments Dorsiflexion -10? from neutral Right Active Ankle/Foot ROM WFL No Testing Position Sitting Plantarflexion 40 Comments Dorsiflexion -20? from neutral Left Passive Ankle/Foot ROM WFL No Testing Position Sitting Dorsiflexion with Knee Extended 0 Plantarflexion 40 Left Active Ankle/Foot ROM WFL No Testing Position Sitting Plantarflexion 30 Comments Dorsiflexion -15? from neutral PT-OP-Q Treatments Start: 12/22/20 17:33 Freq: Status: Active Protocol: Document 01/02/21 13:45 DCW (Rec: 01/02/21 14:31 DCW [id number]) Gym Equipment Therapeutic Ball 1 Exercise Details Low Trunk Rotation Ball Size/Color Blue - 45 cm Body Position Supine Therapeutic Exercises Sidelying Exercises 1 Sidelying Exercise Name Open book /c rhythmic stretch at end Side bilateral Manual Therapy Treatment Soft Tissue Mobilization 4 Body Location B Gastroc Mobilization Type Oscillations,Strumming, Sustained Pressure,Other Comments Stretching/tissue elongation Rhythmic initiation 3 Body Location B Adductors Mobilization Type Oscillations,Strumming, Sustained Pressure,Other Comments Stretching/tissue elongation Rhythmic initiation 2 Body Location B Quads Mobilization Type Oscillations,Strumming, Sustained Pressure,Other Comments Stretching/tissue elongation Rhythmic initiation 1 Body Location B Hamstrings Mobilization Type Oscillations,Strumming, Sustained Pressure,Other Comments Stretching/tissue elongation Rhythmic initiation PT-OP-T Assessment and Plan Start: 12/22/20 17:33 Freq: Status: Active Protocol: Document 01/02/21 13:45 DCW (Rec: 01/02/21 14:31 DCW [id number]) Physical Therapy Assessment Impairments Impairments Activity Tolerance,Balance, Coordination,Functional Activities,Functional Mobility ,Gait,Posture,ROM,Soft Tissue Mobility,Strength,Tone, Transfers Goals Four Impairment Pt has suffered multiple falls over the last three months at home Alf Goal (LTG) Pt to report no falls at home for one month LTG Duration 03/22/21 Three Impairment Pt requires Mod Ax1 to perform sit->stand from wheelchair Alf Goal (LTG) Pt to perform CGA sit->stand from wheelchair height to improve independent transfers LTG Duration 03/22/21 Two Impairment Severely limited lower extremity ROM Short Term Goal (STG) Pt to reduce hip flexion contracture to allow hips to rest at neutral to allow for pt to stand up straight STG Duration 02/05/21 Contract Officer Goal (LTG) Bilateral knee AROM to improve to 10?-90? LTG Duration 03/22/21 One Impairment Pt does not have an appropriate home exercise program Short Term Goal (STG) Pt to be independent and compliant with an appropriate HEP STG Duration 02/05/21 Assessment Summary Assessment Pt hasn't fallen in more than a week, after falling very frequently in the months leading up to beginning therapy. Pt transfers much more easily at this time. Physical Therapy Plan Frequency and Duration Frequency of Treatment 2x/Week Duration of Treatment 90 days Plan of Care Start Date 12/22/20 Plan of Care End Date 03/22/21 Therapeutic Interventions Therapeutic Interventions Balance Training,Coordination Training,Gait Training,Home Exercise Program,Joint Mobilizations,Manual Therapy, Neuromuscular Re-education, Patient/Caregiver Education, Self-Care/Home Management,Soft Tissue Mobilization, Therapeutic Activities, Therapeutic Exercises, Wheelchair Management Modalities Cold Pack/Ice Massage,Electric Stimulation,Hot Packs, Ultrasound Next Visit Focus/Plan Next Note Type Treatment Note Next Visit Plan Balance testing, mobility training, gait training, flexibility/stretching, strengthening
--- NOTE | 2021-01-05 14:31 | PT.OTN ---
Current Diagnoses Cerebral palsy, unspecified (01/05/21) Sarcopenia (01/05/21) Other abnormalities of gait and mobility (01/05/21) Other specified health status (01/05/21) Physical Therapy Treatment Note PT-OP-A Visit Information Start: 12/22/20 17:33 Freq: Status: Active Protocol: Document 01/05/21 13:51 DCW (Rec: 01/05/21 14:31 DCW [id number]) Out-Patient Physical Therapy Visit Information Visit Information Visit Type Treatment Note Visit Start Time 13:51 Visit Stop Time 14:30 Total Visit Minutes 39 Visit Number 5 Number of EPIC DIRECTOR Visits 0 Evaluation Information Evaluation Date 12/22/20 PT-OP-B Current Condition Start: 12/22/20 17:33 Freq: Status: Active Protocol: Document 12/22/20 13:45 DCW (Rec: 12/22/20 17:44 DCW [id number]) Current Condition History of Current Condition Onset Date Life-long history of CP Current Complaints Cerebral Palsy, deconditioning , rigidity/stiffness, declining mobility History of Current Condition Pt is a 55 year old male presenting with a life-long history of Cerebral Palsy. Pt notes that over the past few years, his mobility, flexibility, and gait have all begun to decline, however it has significantly worsened over the last one year. Pt notes that ~10 year ago, he started using more mobility aides, like a scooter and a lift in his vehicle, but then I wasn't working myself, so I started to get worse. Pt notes that with all the shut- downs and quarantine, he has been spending even more time sitting around, and has gotten much worse. Pt notes that he had been using a cane around his house, and a walker out in the community, but gradually over the last year he has had to transition to a walker at home and a wheelchair in the community, as well as his mobility scooter when out for longer periods of time, like when grocery shopping. Even with using a walker, he has been falling a lot more the last three months. Pt has also been having significant SOB recently, and has been struggling more with his speech, which is currently very slowed, labored, and slurred. A year and a half ago, I was able to speak. It slurred a bit, but never to this point. Treatment Goals Patient/Caregiver Goals I need to loosen up and get stronger so I can move better. PT-OP-C Subjective Start: 12/22/20 17:33 Freq: Status: Active Protocol: Document 01/05/21 13:51 DCW (Rec: 01/05/21 14:31 DCW [id number]) OP-PT Subjective Patient Comments Patient Comments Pt reporting he has been feeling better recently, comes in today using his standard walker instead of his w/c. PT-OP-D Balance Start: 12/22/20 17:33 Freq: Status: Active Protocol: Document 12/22/20 13:45 DCW (Rec: 12/22/20 17:46 DCW [id number]) Tinetti Balance Assessment Gait and Step Initiation of Gait Hesitancy, mult. attempts Right Foot Step Length Does pass stance foot Right Foot Step Height Completely clears floor Left Foot Step Length Does not pass stance foot Left Foot Step Height Does not clear floor Step Description Step Symmetry Step length not equal Step Continuity Stopping or discontinuity Gait Description Path Description Marked deviation Trunk Description Marked sway or uses aide Walking Stance Heels apart Scoring and Interpretation Tinetti Composite Score (points) 2 PT-OP-E Functional Tests Start: 12/22/20 17:46 Freq: Status: Active Protocol: Document 12/22/20 13:45 DCW (Rec: 12/22/20 17:47 DCW [id number]) Functional Tests Tinetti Balance and Gait Assessment Gait Score 2 Gait Score Impairment Rating 80 to <100% Impaired (Score 1- 2) PT-OP-F Manual Assessment Start: 12/22/20 17:33 Freq: Status: Active Protocol: Document 12/22/20 13:45 DCW (Rec: 12/22/20 17:56 DCW [id number]) Manual Assessments Joint Mobility Assessment Joint Mobility Assessment Lead-pipe rigidity throughout bilateral lower extremities, severely limiting mobility, gait, transfers PT-OP-G Mobility & Gait Start: 12/22/20 17:33 Freq: Status: Active Protocol: Document 12/22/20 13:45 DCW (Rec: 12/22/20 17:56 DCW [id number]) OP Mobility Evaluation Bed Mobility Supine to and from Sit SBA Transfers Sit to Stand Mod Ax1 /c gait belt, arm rest , standard walker OP Gait Assessment Gait Gait Assistance Required: Contact Guard Assist Distance (Feet) 50 Able to Maintain Weight Bearing Status Yes During Gait Assistive Devices Assistive Device Gait Belt,Standard Walker Gait Deviations General Gait Pattern Ataxic,Decreased Stride Length ,Decreased Feet Clearance, Festinating,Flexed Trunk, Lateral Trunk Lean,Narrow Based Gait,Step-to Gait Factors Limiting Gait Function Factors Limiting Gait Function Abnormal Tonal Influences, Decreased Activity Tolerance, Decreased Strength,Limited Range of Motion,Poor Balance, Poor Safety Awareness, Respiratory Distress Comments Gait Comments Pt ambulates using standard walker, severe rigidity, step- to gait pattern, with right first, left advancing to right . Difficulty advancing left due to toe drag/plantar flexed position due to rigidity, right foot external rotqation to 45? PT-OP-K Range of Motion Start: 12/22/20 17:33 Freq: Status: Active Protocol: Document 12/22/20 13:45 DCW (Rec: 12/22/20 17:56 DCW [id number]) Hip Goniometric Range of Motion Hip Bilateral Comments Pt presents with a hip flexion contracture of 20?, minimal ability to move hips outside of presenting position Knee Goniometric Range of Motion Knee Right Knee ROM WFL No Patient Position Sitting Flexion Active (degrees) 40 Flexion Passive (degrees) 70 Extension Active (degrees) 20 Extension Passive (degrees) 15 Left Knee ROM WFL No Patient Position Sitting Flexion Active (degrees) 52 Flexion Passive (degrees) 74 Extension Active (degrees) 30 Extension Passive (degrees) 24 Knee ROM Limitations Knee ROM Limitations Soft Tissue Tightness, Contracture,Muscle Tone Ankle and Foot Goniometric Range of Motion Ankle and Foot Right Passive Ankle/Foot ROM WFL No Testing Position Sitting Plantarflexion 50 Comments Dorsiflexion -10? from neutral Right Active Ankle/Foot ROM WFL No Testing Position Sitting Plantarflexion 40 Comments Dorsiflexion -20? from neutral Left Passive Ankle/Foot ROM WFL No Testing Position Sitting Dorsiflexion with Knee Extended 0 Plantarflexion 40 Left Active Ankle/Foot ROM WFL No Testing Position Sitting Plantarflexion 30 Comments Dorsiflexion -15? from neutral PT-OP-Q Treatments Start: 12/22/20 17:33 Freq: Status: Active Protocol: Document 01/05/21 13:51 DCW (Rec: 01/05/21 14:31 DCW [id number]) Gym Equipment Therapeutic Ball 1 Exercise Details Low Trunk Rotation Ball Size/Color Blue - 45 cm Body Position Supine Therapeutic Exercises Sidelying Exercises 1 Sidelying Exercise Name Open book /c rhythmic stretch at end Side bilateral Manual Therapy Treatment Soft Tissue Mobilization 4 Body Location B Gastroc Mobilization Type Oscillations,Strumming, Sustained Pressure,Other Comments Stretching/tissue elongation Rhythmic initiation 3 Body Location B Adductors Mobilization Type Oscillations,Strumming, Sustained Pressure,Other Comments Stretching/tissue elongation Rhythmic initiation 2 Body Location B Quads Mobilization Type Oscillations,Strumming, Sustained Pressure,Other Comments Stretching/tissue elongation Rhythmic initiation 1 Body Location B Hamstrings Mobilization Type Oscillations,Strumming, Sustained Pressure,Other Comments Stretching/tissue elongation Rhythmic initiation PT-OP-T Assessment and Plan Start: 12/22/20 17:33 Freq: Status: Active Protocol: Document 01/05/21 13:51 DCW (Rec: 01/05/21 14:31 DCW [id number]) Physical Therapy Assessment Impairments Impairments Activity Tolerance,Balance, Coordination,Functional Activities,Functional Mobility ,Gait,Posture,ROM,Soft Tissue Mobility,Strength,Tone, Transfers Goals Four Impairment Pt has suffered multiple falls over the last three months at home Skilled Nursing Goal (LTG) Pt to report no falls at home for one month LTG Duration 03/22/21 Three Impairment Pt requires Mod Ax1 to perform sit->stand from wheelchair Healthcare Manager Goal (LTG) Pt to perform CGA sit->stand from wheelchair height to improve independent transfers LTG Duration 03/22/21 Two Impairment Severely limited lower extremity ROM Short Term Goal (STG) Pt to reduce hip flexion contracture to allow hips to rest at neutral to allow for pt to stand up straight STG Duration 02/05/21 Skilled Nursing Goal (LTG) Bilateral knee AROM to improve to 10?-90? LTG Duration 03/22/21 One Impairment Pt does not have an appropriate home exercise program Short Term Goal (STG) Pt to be independent and compliant with an appropriate HEP STG Duration 02/05/21 Assessment Summary Assessment Pt continues to progress well, improved mobility today, significant improvement with walker ambulation compared to initial eval. Physical Therapy Plan Frequency and Duration Frequency of Treatment 2x/Week Duration of Treatment 90 days Plan of Care Start Date 12/22/20 Plan of Care End Date 03/22/21 Therapeutic Interventions Therapeutic Interventions Balance Training,Coordination Training,Gait Training,Home Exercise Program,Joint Mobilizations,Manual Therapy, Neuromuscular Re-education, Patient/Caregiver Education, Self-Care/Home Management,Soft Tissue Mobilization, Therapeutic Activities, Therapeutic Exercises, Wheelchair Management Modalities Cold Pack/Ice Massage,Electric Stimulation,Hot Packs, Ultrasound Next Visit Focus/Plan Next Note Type Treatment Note Next Visit Plan Balance testing, mobility training, gait training, flexibility/stretching, strengthening
--- NOTE | 2021-01-08 14:29 | PT.OTN ---
Current Diagnoses Cerebral palsy, unspecified (01/08/21) Sarcopenia (01/08/21) Other abnormalities of gait and mobility (01/08/21) Other specified health status (01/08/21) Physical Therapy Treatment Note PT-OP-A Visit Information Start: 12/22/20 17:33 Freq: Status: Active Protocol: Document 01/08/21 13:47 DCW (Rec: 01/08/21 14:29 DCW [id number]) Out-Patient Physical Therapy Visit Information Visit Information Visit Type Treatment Note Visit Start Time 13:47 Visit Stop Time 14:30 Total Visit Minutes 42 Visit Number 6 Number of [employer] Visits 0 Evaluation Information Evaluation Date 12/22/20 PT-OP-B Current Condition Start: 12/22/20 17:33 Freq: Status: Active Protocol: Document 12/22/20 13:45 DCW (Rec: 12/22/20 17:44 DCW [id number]) Current Condition History of Current Condition Onset Date Life-long history of CP Current Complaints Cerebral Palsy, deconditioning , rigidity/stiffness, declining mobility History of Current Condition Pt is a 55 year old male presenting with a life-long history of Cerebral Palsy. Pt notes that over the past few years, his mobility, flexibility, and gait have all begun to decline, however it has significantly worsened over the last one year. Pt notes that ~10 year ago, he started using more mobility aides, like a scooter and a lift in his vehicle, but then I wasn't working myself, so I started to get worse. Pt notes that with all the shut- downs and quarantine, he has been spending even more time sitting around, and has gotten much worse. Pt notes that he had been using a cane around his house, and a walker out in the community, but gradually over the last year he has had to transition to a walker at home and a wheelchair in the community, as well as his mobility scooter when out for longer periods of time, like when grocery shopping. Even with using a walker, he has been falling a lot more the last three months. Pt has also been having significant SOB recently, and has been struggling more with his speech, which is currently very slowed, labored, and slurred. A year and a half ago, I was able to speak. It slurred a bit, but never to this point. Treatment Goals Patient/Caregiver Goals I need to loosen up and get stronger so I can move better. PT-OP-C Subjective Start: 12/22/20 17:33 Freq: Status: Active Protocol: Document 01/08/21 13:47 DCW (Rec: 01/08/21 14:29 DCW [id number]) OP-PT Subjective Patient Comments Patient Comments Pt still very happy with improved level of function since starting PT. PT-OP-D Balance Start: 12/22/20 17:33 Freq: Status: Active Protocol: Document 12/22/20 13:45 DCW (Rec: 12/22/20 17:46 DCW [id number]) Tinetti Balance Assessment Gait and Step Initiation of Gait Hesitancy, mult. attempts Right Foot Step Length Does pass stance foot Right Foot Step Height Completely clears floor Left Foot Step Length Does not pass stance foot Left Foot Step Height Does not clear floor Step Description Step Symmetry Step length not equal Step Continuity Stopping or discontinuity Gait Description Path Description Marked deviation Trunk Description Marked sway or uses aide Walking Stance Heels apart Scoring and Interpretation Tinetti Composite Score (points) 2 PT-OP-E Functional Tests Start: 12/22/20 17:46 Freq: Status: Active Protocol: Document 12/22/20 13:45 DCW (Rec: 12/22/20 17:47 DCW [id number]) Functional Tests Tinetti Balance and Gait Assessment Gait Score 2 Gait Score Impairment Rating 80 to <100% Impaired (Score 1- 2) PT-OP-F Manual Assessment Start: 12/22/20 17:33 Freq: Status: Active Protocol: Document 12/22/20 13:45 DCW (Rec: 12/22/20 17:56 DCW [id number]) Manual Assessments Joint Mobility Assessment Joint Mobility Assessment Lead-pipe rigidity throughout bilateral lower extremities, severely limiting mobility, gait, transfers PT-OP-G Mobility & Gait Start: 12/22/20 17:33 Freq: Status: Active Protocol: Document 12/22/20 13:45 DCW (Rec: 12/22/20 17:56 DCW [id number]) OP Mobility Evaluation Bed Mobility Supine to and from Sit SBA Transfers Sit to Stand Mod Ax1 /c gait belt, arm rest , standard walker OP Gait Assessment Gait Gait Assistance Required: Contact Guard Assist Distance (Feet) 50 Able to Maintain Weight Bearing Status Yes During Gait Assistive Devices Assistive Device Gait Belt,Standard Walker Gait Deviations General Gait Pattern Ataxic,Decreased Stride Length ,Decreased Feet Clearance, Festinating,Flexed Trunk, Lateral Trunk Lean,Narrow Based Gait,Step-to Gait Factors Limiting Gait Function Factors Limiting Gait Function Abnormal Tonal Influences, Decreased Activity Tolerance, Decreased Strength,Limited Range of Motion,Poor Balance, Poor Safety Awareness, Respiratory Distress Comments Gait Comments Pt ambulates using standard walker, severe rigidity, step- to gait pattern, with right first, left advancing to right . Difficulty advancing left due to toe drag/plantar flexed position due to rigidity, right foot external rotqation to 45? PT-OP-K Range of Motion Start: 12/22/20 17:33 Freq: Status: Active Protocol: Document 12/22/20 13:45 DCW (Rec: 12/22/20 17:56 DCW [id number]) Hip Goniometric Range of Motion Hip Bilateral Comments Pt presents with a hip flexion contracture of 20?, minimal ability to move hips outside of presenting position Knee Goniometric Range of Motion Knee Right Knee ROM WFL No Patient Position Sitting Flexion Active (degrees) 40 Flexion Passive (degrees) 70 Extension Active (degrees) 20 Extension Passive (degrees) 15 Left Knee ROM WFL No Patient Position Sitting Flexion Active (degrees) 52 Flexion Passive (degrees) 74 Extension Active (degrees) 30 Extension Passive (degrees) 24 Knee ROM Limitations Knee ROM Limitations Soft Tissue Tightness, Contracture,Muscle Tone Ankle and Foot Goniometric Range of Motion Ankle and Foot Right Passive Ankle/Foot ROM WFL No Testing Position Sitting Plantarflexion 50 Comments Dorsiflexion -10? from neutral Right Active Ankle/Foot ROM WFL No Testing Position Sitting Plantarflexion 40 Comments Dorsiflexion -20? from neutral Left Passive Ankle/Foot ROM WFL No Testing Position Sitting Dorsiflexion with Knee Extended 0 Plantarflexion 40 Left Active Ankle/Foot ROM WFL No Testing Position Sitting Plantarflexion 30 Comments Dorsiflexion -15? from neutral PT-OP-Q Treatments Start: 12/22/20 17:33 Freq: Status: Active Protocol: Document 01/08/21 13:47 DCW (Rec: 01/08/21 14:29 DCW [id number]) Gym Equipment Therapeutic Ball 1 Exercise Details Low Trunk Rotation Ball Size/Color Blue - 45 cm Body Position Supine Therapeutic Exercises Sidelying Exercises 1 Sidelying Exercise Name Open book /c rhythmic stretch at end Side bilateral Manual Therapy Treatment Soft Tissue Mobilization 4 Body Location B Gastroc Mobilization Type Oscillations,Strumming, Sustained Pressure,Other Comments Stretching/tissue elongation Rhythmic initiation 3 Body Location B Adductors Mobilization Type Oscillations,Strumming, Sustained Pressure,Other Comments Stretching/tissue elongation Rhythmic initiation 2 Body Location B Quads Mobilization Type Oscillations,Strumming, Sustained Pressure,Other Comments Stretching/tissue elongation Rhythmic initiation 1 Body Location B Hamstrings Mobilization Type Oscillations,Strumming, Sustained Pressure,Other Comments Stretching/tissue elongation Rhythmic initiation PT-OP-T Assessment and Plan Start: 12/22/20 17:33 Freq: Status: Active Protocol: Document 01/08/21 13:47 DCW (Rec: 01/08/21 14:29 DCW [id number]) Physical Therapy Assessment Impairments Impairments Activity Tolerance,Balance, Coordination,Functional Activities,Functional Mobility ,Gait,Posture,ROM,Soft Tissue Mobility,Strength,Tone, Transfers Goals Four Impairment Pt has suffered multiple falls over the last three months at home [employer] Goal (LTG) Pt to report no falls at home for one month LTG Duration 03/22/21 Three Impairment Pt requires Mod Ax1 to perform sit->stand from wheelchair [employer] Goal (LTG) Pt to perform CGA sit->stand from wheelchair height to improve independent transfers LTG Duration 03/22/21 Two Impairment Severely limited lower extremity ROM Short Term Goal (STG) Pt to reduce hip flexion contracture to allow hips to rest at neutral to allow for pt to stand up straight STG Duration 02/05/21 [employer] Goal (LTG) Bilateral knee AROM to improve to 10?-90? LTG Duration 03/22/21 One Impairment Pt does not have an appropriate home exercise program Short Term Goal (STG) Pt to be independent and compliant with an appropriate HEP STG Duration 02/05/21 Assessment Summary Assessment Pt has been very compliant with his HEP, still noticing continued improvement in mobility and flexibility. Physical Therapy Plan Frequency and Duration Frequency of Treatment 2x/Week Duration of Treatment 90 days Plan of Care Start Date 12/22/20 Plan of Care End Date 03/22/21 Therapeutic Interventions Therapeutic Interventions Balance Training,Coordination Training,Gait Training,Home Exercise Program,Joint Mobilizations,Manual Therapy, Neuromuscular Re-education, Patient/Caregiver Education, Self-Care/Home Management,Soft Tissue Mobilization, Therapeutic Activities, Therapeutic Exercises, Wheelchair Management Modalities Cold Pack/Ice Massage,Electric Stimulation,Hot Packs, Ultrasound Next Visit Focus/Plan Next Note Type Treatment Note Next Visit Plan Balance testing, mobility training, gait training, flexibility/stretching, strengthening
--- NOTE | 2021-01-21 14:32 | PT.OTN ---
Current Diagnoses Cerebral palsy, unspecified (01/21/21) Sarcopenia (01/21/21) Other abnormalities of gait and mobility (01/21/21) Other specified health status (01/21/21) Physical Therapy Treatment Note PT-OP-A Visit Information Start: 12/22/20 17:33 Freq: Status: Active Protocol: Document 01/21/21 13:47 DCW (Rec: 01/21/21 14:30 DCW [id number]) Out-Patient Physical Therapy Visit Information Visit Information Visit Type Treatment Note Visit Start Time 13:47 Visit Stop Time 14:30 Total Visit Minutes 42 Visit Number 7 Number of [employer] Visits 0 Evaluation Information Evaluation Date 12/22/20 PT-OP-B Current Condition Start: 12/22/20 17:33 Freq: Status: Active Protocol: Document 12/22/20 13:45 DCW (Rec: 12/22/20 17:44 DCW [id number]) Current Condition History of Current Condition Onset Date Life-long history of CP Current Complaints Cerebral Palsy, deconditioning , rigidity/stiffness, declining mobility History of Current Condition Pt is a 55 year old male presenting with a life-long history of Cerebral Palsy. Pt notes that over the past few years, his mobility, flexibility, and gait have all begun to decline, however it has significantly worsened over the last one year. Pt notes that ~10 year ago, he started using more mobility aides, like a scooter and a lift in his vehicle, but then I wasn't working myself, so I started to get worse. Pt notes that with all the shut- downs and quarantine, he has been spending even more time sitting around, and has gotten much worse. Pt notes that he had been using a cane around his house, and a walker out in the community, but gradually over the last year he has had to transition to a walker at home and a wheelchair in the community, as well as his mobility scooter when out for longer periods of time, like when grocery shopping. Even with using a walker, he has been falling a lot more the last three months. Pt has also been having significant SOB recently, and has been struggling more with his speech, which is currently very slowed, labored, and slurred. A year and a half ago, I was able to speak. It slurred a bit, but never to this point. Treatment Goals Patient/Caregiver Goals I need to loosen up and get stronger so I can move better. PT-OP-C Subjective Start: 12/22/20 17:33 Freq: Status: Active Protocol: Document 01/21/21 13:47 DCW (Rec: 01/21/21 14:30 DCW [id number]) OP-PT Subjective Patient Comments Patient Comments Pt feels like he has tightened up a little since he didn't have any PT for two weeks, but is still feeling better than he had been. PT-OP-D Balance Start: 12/22/20 17:33 Freq: Status: Active Protocol: Document 12/22/20 13:45 DCW (Rec: 12/22/20 17:46 DCW [id number]) Tinetti Balance Assessment Gait and Step Initiation of Gait Hesitancy, mult. attempts Right Foot Step Length Does pass stance foot Right Foot Step Height Completely clears floor Left Foot Step Length Does not pass stance foot Left Foot Step Height Does not clear floor Step Description Step Symmetry Step length not equal Step Continuity Stopping or discontinuity Gait Description Path Description Marked deviation Trunk Description Marked sway or uses aide Walking Stance Heels apart Scoring and Interpretation Tinetti Composite Score (points) 2 PT-OP-E Functional Tests Start: 12/22/20 17:46 Freq: Status: Active Protocol: Document 12/22/20 13:45 DCW (Rec: 12/22/20 17:47 DCW [id number]) Functional Tests Tinetti Balance and Gait Assessment Gait Score 2 Gait Score Impairment Rating 80 to <100% Impaired (Score 1- 2) PT-OP-F Manual Assessment Start: 12/22/20 17:33 Freq: Status: Active Protocol: Document 12/22/20 13:45 DCW (Rec: 12/22/20 17:56 DCW [id number]) Manual Assessments Joint Mobility Assessment Joint Mobility Assessment Lead-pipe rigidity throughout bilateral lower extremities, severely limiting mobility, gait, transfers PT-OP-G Mobility & Gait Start: 12/22/20 17:33 Freq: Status: Active Protocol: Document 12/22/20 13:45 DCW (Rec: 12/22/20 17:56 DCW [id number]) OP Mobility Evaluation Bed Mobility Supine to and from Sit SBA Transfers Sit to Stand Mod Ax1 /c gait belt, arm rest , standard walker OP Gait Assessment Gait Gait Assistance Required: Contact Guard Assist Distance (Feet) 50 Able to Maintain Weight Bearing Status Yes During Gait Assistive Devices Assistive Device Gait Belt,Standard Walker Gait Deviations General Gait Pattern Ataxic,Decreased Stride Length ,Decreased Feet Clearance, Festinating,Flexed Trunk, Lateral Trunk Lean,Narrow Based Gait,Step-to Gait Factors Limiting Gait Function Factors Limiting Gait Function Abnormal Tonal Influences, Decreased Activity Tolerance, Decreased Strength,Limited Range of Motion,Poor Balance, Poor Safety Awareness, Respiratory Distress Comments Gait Comments Pt ambulates using standard walker, severe rigidity, step- to gait pattern, with right first, left advancing to right . Difficulty advancing left due to toe drag/plantar flexed position due to rigidity, right foot external rotqation to 45? PT-OP-K Range of Motion Start: 12/22/20 17:33 Freq: Status: Active Protocol: Document 12/22/20 13:45 DCW (Rec: 12/22/20 17:56 DCW [id number]) Hip Goniometric Range of Motion Hip Bilateral Comments Pt presents with a hip flexion contracture of 20?, minimal ability to move hips outside of presenting position Knee Goniometric Range of Motion Knee Right Knee ROM WFL No Patient Position Sitting Flexion Active (degrees) 40 Flexion Passive (degrees) 70 Extension Active (degrees) 20 Extension Passive (degrees) 15 Left Knee ROM WFL No Patient Position Sitting Flexion Active (degrees) 52 Flexion Passive (degrees) 74 Extension Active (degrees) 30 Extension Passive (degrees) 24 Knee ROM Limitations Knee ROM Limitations Soft Tissue Tightness, Contracture,Muscle Tone Ankle and Foot Goniometric Range of Motion Ankle and Foot Right Passive Ankle/Foot ROM WFL No Testing Position Sitting Plantarflexion 50 Comments Dorsiflexion -10? from neutral Right Active Ankle/Foot ROM WFL No Testing Position Sitting Plantarflexion 40 Comments Dorsiflexion -20? from neutral Left Passive Ankle/Foot ROM WFL No Testing Position Sitting Dorsiflexion with Knee Extended 0 Plantarflexion 40 Left Active Ankle/Foot ROM WFL No Testing Position Sitting Plantarflexion 30 Comments Dorsiflexion -15? from neutral PT-OP-Q Treatments Start: 12/22/20 17:33 Freq: Status: Active Protocol: Document 01/21/21 13:47 DCW (Rec: 01/21/21 14:30 DCW [id number]) Gym Equipment Therapeutic Ball 1 Exercise Details Low Trunk Rotation Ball Size/Color Blue - 45 cm Body Position Supine Therapeutic Exercises Sidelying Exercises 1 Sidelying Exercise Name Open book /c rhythmic stretch at end Side bilateral Manual Therapy Treatment Soft Tissue Mobilization 4 Body Location B Gastroc Mobilization Type Oscillations,Strumming, Sustained Pressure,Other Comments Stretching/tissue elongation Rhythmic initiation 3 Body Location B Adductors Mobilization Type Oscillations,Strumming, Sustained Pressure,Other Comments Stretching/tissue elongation Rhythmic initiation 2 Body Location B Quads Mobilization Type Oscillations,Strumming, Sustained Pressure,Other Comments Stretching/tissue elongation Rhythmic initiation 1 Body Location B Hamstrings Mobilization Type Oscillations,Strumming, Sustained Pressure,Other Comments Stretching/tissue elongation Rhythmic initiation PT-OP-T Assessment and Plan Start: 12/22/20 17:33 Freq: Status: Active Protocol: Document 01/21/21 13:47 DCW (Rec: 01/21/21 14:30 DCW [id number]) Physical Therapy Assessment Impairments Impairments Activity Tolerance,Balance, Coordination,Functional Activities,Functional Mobility ,Gait,Posture,ROM,Soft Tissue Mobility,Strength,Tone, Transfers Goals Four Impairment Pt has suffered multiple falls over the last three months at home [employer] Goal (LTG) Pt to report no falls at home for one month LTG Duration 03/22/21 Three Impairment Pt requires Mod Ax1 to perform sit->stand from wheelchair [employer] Goal (LTG) Pt to perform CGA sit->stand from wheelchair height to improve independent transfers LTG Duration 03/22/21 Two Impairment Severely limited lower extremity ROM Short Term Goal (STG) Pt to reduce hip flexion contracture to allow hips to rest at neutral to allow for pt to stand up straight STG Duration 02/05/21 [employer] Goal (LTG) Bilateral knee AROM to improve to 10?-90? LTG Duration 03/22/21 One Impairment Pt does not have an appropriate home exercise program Short Term Goal (STG) Pt to be independent and compliant with an appropriate HEP STG Duration 02/05/21 Assessment Summary Assessment Pt notes that he has not fallen in four weeks, after falling multiple times each week before3 starting PT. Physical Therapy Plan Frequency and Duration Frequency of Treatment 2x/Week Duration of Treatment 90 days Plan of Care Start Date 12/22/20 Plan of Care End Date 03/22/21 Therapeutic Interventions Therapeutic Interventions Balance Training,Coordination Training,Gait Training,Home Exercise Program,Joint Mobilizations,Manual Therapy, Neuromuscular Re-education, Patient/Caregiver Education, Self-Care/Home Management,Soft Tissue Mobilization, Therapeutic Activities, Therapeutic Exercises, Wheelchair Management Modalities Cold Pack/Ice Massage,Electric Stimulation,Hot Packs, Ultrasound Next Visit Focus/Plan Next Note Type Treatment Note Next Visit Plan Balance testing, mobility training, gait training, flexibility/stretching, strengthening
--- NOTE | 2021-01-23 14:31 | PT.OTN ---
Current Diagnoses Cerebral palsy, unspecified (01/23/21) Sarcopenia (01/23/21) Other abnormalities of gait and mobility (01/23/21) Other specified health status (01/23/21) Physical Therapy Treatment Note PT-OP-A Visit Information Start: 12/22/20 17:33 Freq: Status: Active Protocol: Document 01/23/21 13:45 DCW (Rec: 01/23/21 14:31 DCW [id number]) Out-Patient Physical Therapy Visit Information Visit Information Visit Type Treatment Note Visit Start Time 13:45 Visit Stop Time 14:30 Total Visit Minutes 45 Visit Number 8 Number of SHOWCASE TRIMMER Visits 0 Evaluation Information Evaluation Date 12/22/20 PT-OP-B Current Condition Start: 12/22/20 17:33 Freq: Status: Active Protocol: Document 12/22/20 13:45 DCW (Rec: 12/22/20 17:44 DCW [id number]) Current Condition History of Current Condition Onset Date Life-long history of CP Current Complaints Cerebral Palsy, deconditioning , rigidity/stiffness, declining mobility History of Current Condition Pt is a 55 year old male presenting with a life-long history of Cerebral Palsy. Pt notes that over the past few years, his mobility, flexibility, and gait have all begun to decline, however it has significantly worsened over the last one year. Pt notes that ~10 year ago, he started using more mobility aides, like a scooter and a lift in his vehicle, but then I wasn't working myself, so I started to get worse. Pt notes that with all the shut- downs and quarantine, he has been spending even more time sitting around, and has gotten much worse. Pt notes that he had been using a cane around his house, and a walker out in the community, but gradually over the last year he has had to transition to a walker at home and a wheelchair in the community, as well as his mobility scooter when out for longer periods of time, like when grocery shopping. Even with using a walker, he has been falling a lot more the last three months. Pt has also been having significant SOB recently, and has been struggling more with his speech, which is currently very slowed, labored, and slurred. A year and a half ago, I was able to speak. It slurred a bit, but never to this point. Treatment Goals Patient/Caregiver Goals I need to loosen up and get stronger so I can move better. PT-OP-C Subjective Start: 12/22/20 17:33 Freq: Status: Active Protocol: Document 01/23/21 13:45 DCW (Rec: 01/23/21 14:31 DCW [id number]) OP-PT Subjective Patient Comments Patient Comments Pt attends today's session back in his wheelchair, but states he just thought it would be faster to get around, as he has Speech Therapy right after PT today. PT-OP-D Balance Start: 12/22/20 17:33 Freq: Status: Active Protocol: Document 12/22/20 13:45 DCW (Rec: 12/22/20 17:46 DCW [id number]) Tinetti Balance Assessment Gait and Step Initiation of Gait Hesitancy, mult. attempts Right Foot Step Length Does pass stance foot Right Foot Step Height Completely clears floor Left Foot Step Length Does not pass stance foot Left Foot Step Height Does not clear floor Step Description Step Symmetry Step length not equal Step Continuity Stopping or discontinuity Gait Description Path Description Marked deviation Trunk Description Marked sway or uses aide Walking Stance Heels apart Scoring and Interpretation Tinetti Composite Score (points) 2 PT-OP-E Functional Tests Start: 12/22/20 17:46 Freq: Status: Active Protocol: Document 12/22/20 13:45 DCW (Rec: 12/22/20 17:47 DCW [id number]) Functional Tests Tinetti Balance and Gait Assessment Gait Score 2 Gait Score Impairment Rating 80 to <100% Impaired (Score 1- 2) PT-OP-F Manual Assessment Start: 12/22/20 17:33 Freq: Status: Active Protocol: Document 12/22/20 13:45 DCW (Rec: 12/22/20 17:56 DCW [id number]) Manual Assessments Joint Mobility Assessment Joint Mobility Assessment Lead-pipe rigidity throughout bilateral lower extremities, severely limiting mobility, gait, transfers PT-OP-G Mobility & Gait Start: 12/22/20 17:33 Freq: Status: Active Protocol: Document 12/22/20 13:45 DCW (Rec: 12/22/20 17:56 DCW [id number]) OP Mobility Evaluation Bed Mobility Supine to and from Sit SBA Transfers Sit to Stand Mod Ax1 /c gait belt, arm rest , standard walker OP Gait Assessment Gait Gait Assistance Required: Contact Guard Assist Distance (Feet) 50 Able to Maintain Weight Bearing Status Yes During Gait Assistive Devices Assistive Device Gait Belt,Standard Walker Gait Deviations General Gait Pattern Ataxic,Decreased Stride Length ,Decreased Feet Clearance, Festinating,Flexed Trunk, Lateral Trunk Lean,Narrow Based Gait,Step-to Gait Factors Limiting Gait Function Factors Limiting Gait Function Abnormal Tonal Influences, Decreased Activity Tolerance, Decreased Strength,Limited Range of Motion,Poor Balance, Poor Safety Awareness, Respiratory Distress Comments Gait Comments Pt ambulates using standard walker, severe rigidity, step- to gait pattern, with right first, left advancing to right . Difficulty advancing left due to toe drag/plantar flexed position due to rigidity, right foot external rotqation to 45? PT-OP-K Range of Motion Start: 12/22/20 17:33 Freq: Status: Active Protocol: Document 12/22/20 13:45 DCW (Rec: 12/22/20 17:56 DCW [id number]) Hip Goniometric Range of Motion Hip Bilateral Comments Pt presents with a hip flexion contracture of 20?, minimal ability to move hips outside of presenting position Knee Goniometric Range of Motion Knee Right Knee ROM WFL No Patient Position Sitting Flexion Active (degrees) 40 Flexion Passive (degrees) 70 Extension Active (degrees) 20 Extension Passive (degrees) 15 Left Knee ROM WFL No Patient Position Sitting Flexion Active (degrees) 52 Flexion Passive (degrees) 74 Extension Active (degrees) 30 Extension Passive (degrees) 24 Knee ROM Limitations Knee ROM Limitations Soft Tissue Tightness, Contracture,Muscle Tone Ankle and Foot Goniometric Range of Motion Ankle and Foot Right Passive Ankle/Foot ROM WFL No Testing Position Sitting Plantarflexion 50 Comments Dorsiflexion -10? from neutral Right Active Ankle/Foot ROM WFL No Testing Position Sitting Plantarflexion 40 Comments Dorsiflexion -20? from neutral Left Passive Ankle/Foot ROM WFL No Testing Position Sitting Dorsiflexion with Knee Extended 0 Plantarflexion 40 Left Active Ankle/Foot ROM WFL No Testing Position Sitting Plantarflexion 30 Comments Dorsiflexion -15? from neutral PT-OP-Q Treatments Start: 12/22/20 17:33 Freq: Status: Active Protocol: Document 01/23/21 13:45 DCW (Rec: 01/23/21 14:31 DCW [id number]) Gym Equipment Therapeutic Ball 1 Exercise Details Low Trunk Rotation Ball Size/Color Blue - 45 cm Body Position Supine Therapeutic Exercises Sidelying Exercises 1 Sidelying Exercise Name Open book /c rhythmic stretch at end Side bilateral Manual Therapy Treatment Soft Tissue Mobilization 4 Body Location B Gastroc Mobilization Type Oscillations,Strumming, Sustained Pressure,Other Comments Stretching/tissue elongation Rhythmic initiation 3 Body Location B Adductors Mobilization Type Oscillations,Strumming, Sustained Pressure,Other Comments Stretching/tissue elongation Rhythmic initiation 2 Body Location B Quads Mobilization Type Oscillations,Strumming, Sustained Pressure,Other Comments Stretching/tissue elongation Rhythmic initiation 1 Body Location B Hamstrings Mobilization Type Oscillations,Strumming, Sustained Pressure,Other Comments Stretching/tissue elongation Rhythmic initiation PT-OP-T Assessment and Plan Start: 12/22/20 17:33 Freq: Status: Active Protocol: Document 01/23/21 13:45 DCW (Rec: 01/23/21 14:31 DCW [id number]) Physical Therapy Assessment Impairments Impairments Activity Tolerance,Balance, Coordination,Functional Activities,Functional Mobility ,Gait,Posture,ROM,Soft Tissue Mobility,Strength,Tone, Transfers Goals Four Impairment Pt has suffered multiple falls over the last three months at home Fdc Goal (LTG) Pt to report no falls at home for one month LTG Duration 03/22/21 Three Impairment Pt requires Mod Ax1 to perform sit->stand from wheelchair Fdc Goal (LTG) Pt to perform CGA sit->stand from wheelchair height to improve independent transfers LTG Duration 03/22/21 Two Impairment Severely limited lower extremity ROM Short Term Goal (STG) Pt to reduce hip flexion contracture to allow hips to rest at neutral to allow for pt to stand up straight STG Duration 02/05/21 Tripe Finisher Goal (LTG) Bilateral knee AROM to improve to 10?-90? LTG Duration 03/22/21 One Impairment Pt does not have an appropriate home exercise program Short Term Goal (STG) Pt to be independent and compliant with an appropriate HEP STG Duration 02/05/21 Assessment Summary Assessment Pt still has significant hypertonia/lead-pipe rigidity, however much more pliable with manual stretching, especially left knee flexion and right hip flexion. Physical Therapy Plan Frequency and Duration Frequency of Treatment 2x/Week Duration of Treatment 90 days Plan of Care Start Date 12/22/20 Plan of Care End Date 03/22/21 Therapeutic Interventions Therapeutic Interventions Balance Training,Coordination Training,Gait Training,Home Exercise Program,Joint Mobilizations,Manual Therapy, Neuromuscular Re-education, Patient/Caregiver Education, Self-Care/Home Management,Soft Tissue Mobilization, Therapeutic Activities, Therapeutic Exercises, Wheelchair Management Modalities Cold Pack/Ice Massage,Electric Stimulation,Hot Packs, Ultrasound Next Visit Focus/Plan Next Note Type Treatment Note Next Visit Plan Balance testing, mobility training, gait training, flexibility/stretching, strengthening
--- NOTE | 2021-02-04 15:13 | PT.OTN ---
Current Diagnoses Cerebral palsy, unspecified (02/04/21) Sarcopenia (02/04/21) Other abnormalities of gait and mobility (02/04/21) Other specified health status (02/04/21) Physical Therapy Treatment Note PT-OP-A Visit Information Start: 12/22/20 17:33 Freq: Status: Active Protocol: Document 02/04/21 14:36 DCW (Rec: 02/04/21 15:13 DCW [id number]) Out-Patient Physical Therapy Visit Information Visit Information Visit Type Treatment Note Visit Start Time 14:36 Visit Stop Time 15:15 Total Visit Minutes 39 Visit Number 9 Number of HEAD OF [employer]ATE[employer]NERSHIPS Visits 0 Evaluation Information Evaluation Date 12/22/20 PT-OP-B Current Condition Start: 12/22/20 17:33 Freq: Status: Active Protocol: Document 12/22/20 13:45 DCW (Rec: 12/22/20 17:44 DCW [id number]) Current Condition History of Current Condition Onset Date Life-long history of CP Current Complaints Cerebral Palsy, deconditioning , rigidity/stiffness, declining mobility History of Current Condition Pt is a 55 year old male presenting with a life-long history of Cerebral Palsy. Pt notes that over the past few years, his mobility, flexibility, and gait have all begun to decline, however it has significantly worsened over the last one year. Pt notes that ~10 year ago, he started using more mobility aides, like a scooter and a lift in his vehicle, but then I wasn't working myself, so I started to get worse. Pt notes that with all the shut- downs and quarantine, he has been spending even more time sitting around, and has gotten much worse. Pt notes that he had been using a cane around his house, and a walker out in the community, but gradually over the last year he has had to transition to a walker at home and a wheelchair in the community, as well as his mobility scooter when out for longer periods of time, like when grocery shopping. Even with using a walker, he has been falling a lot more the last three months. Pt has also been having significant SOB recently, and has been struggling more with his speech, which is currently very slowed, labored, and slurred. A year and a half ago, I was able to speak. It slurred a bit, but never to this point. Treatment Goals Patient/Caregiver Goals I need to loosen up and get stronger so I can move better. PT-OP-C Subjective Start: 12/22/20 17:33 Freq: Status: Active Protocol: Document 02/04/21 14:36 DCW (Rec: 02/04/21 15:13 DCW [id number]) OP-PT Subjective Patient Comments Patient Comments Pt feels okay today. PT-OP-D Balance Start: 12/22/20 17:33 Freq: Status: Active Protocol: Document 12/22/20 13:45 DCW (Rec: 12/22/20 17:46 DCW [id number]) Tinetti Balance Assessment Gait and Step Initiation of Gait Hesitancy, mult. attempts Right Foot Step Length Does pass stance foot Right Foot Step Height Completely clears floor Left Foot Step Length Does not pass stance foot Left Foot Step Height Does not clear floor Step Description Step Symmetry Step length not equal Step Continuity Stopping or discontinuity Gait Description Path Description Marked deviation Trunk Description Marked sway or uses aide Walking Stance Heels apart Scoring and Interpretation Tinetti Composite Score (points) 2 PT-OP-E Functional Tests Start: 12/22/20 17:46 Freq: Status: Active Protocol: Document 12/22/20 13:45 DCW (Rec: 12/22/20 17:47 DCW [id number]) Functional Tests Tinetti Balance and Gait Assessment Gait Score 2 Gait Score Impairment Rating 80 to <100% Impaired (Score 1- 2) PT-OP-F Manual Assessment Start: 12/22/20 17:33 Freq: Status: Active Protocol: Document 12/22/20 13:45 DCW (Rec: 12/22/20 17:56 DCW [id number]) Manual Assessments Joint Mobility Assessment Joint Mobility Assessment Lead-pipe rigidity throughout bilateral lower extremities, severely limiting mobility, gait, transfers PT-OP-G Mobility & Gait Start: 12/22/20 17:33 Freq: Status: Active Protocol: Document 12/22/20 13:45 DCW (Rec: 12/22/20 17:56 DCW [id number]) OP Mobility Evaluation Bed Mobility Supine to and from Sit SBA Transfers Sit to Stand Mod Ax1 /c gait belt, arm rest , standard walker OP Gait Assessment Gait Gait Assistance Required: Contact Guard Assist Distance (Feet) 50 Able to Maintain Weight Bearing Status Yes During Gait Assistive Devices Assistive Device Gait Belt,Standard Walker Gait Deviations General Gait Pattern Ataxic,Decreased Stride Length ,Decreased Feet Clearance, Festinating,Flexed Trunk, Lateral Trunk Lean,Narrow Based Gait,Step-to Gait Factors Limiting Gait Function Factors Limiting Gait Function Abnormal Tonal Influences, Decreased Activity Tolerance, Decreased Strength,Limited Range of Motion,Poor Balance, Poor Safety Awareness, Respiratory Distress Comments Gait Comments Pt ambulates using standard walker, severe rigidity, step- to gait pattern, with right first, left advancing to right . Difficulty advancing left due to toe drag/plantar flexed position due to rigidity, right foot external rotqation to 45? PT-OP-K Range of Motion Start: 12/22/20 17:33 Freq: Status: Active Protocol: Document 12/22/20 13:45 DCW (Rec: 12/22/20 17:56 DCW [id number]) Hip Goniometric Range of Motion Hip Bilateral Comments Pt presents with a hip flexion contracture of 20?, minimal ability to move hips outside of presenting position Knee Goniometric Range of Motion Knee Right Knee ROM WFL No Patient Position Sitting Flexion Active (degrees) 40 Flexion Passive (degrees) 70 Extension Active (degrees) 20 Extension Passive (degrees) 15 Left Knee ROM WFL No Patient Position Sitting Flexion Active (degrees) 52 Flexion Passive (degrees) 74 Extension Active (degrees) 30 Extension Passive (degrees) 24 Knee ROM Limitations Knee ROM Limitations Soft Tissue Tightness, Contracture,Muscle Tone Ankle and Foot Goniometric Range of Motion Ankle and Foot Right Passive Ankle/Foot ROM WFL No Testing Position Sitting Plantarflexion 50 Comments Dorsiflexion -10? from neutral Right Active Ankle/Foot ROM WFL No Testing Position Sitting Plantarflexion 40 Comments Dorsiflexion -20? from neutral Left Passive Ankle/Foot ROM WFL No Testing Position Sitting Dorsiflexion with Knee Extended 0 Plantarflexion 40 Left Active Ankle/Foot ROM WFL No Testing Position Sitting Plantarflexion 30 Comments Dorsiflexion -15? from neutral PT-OP-Q Treatments Start: 12/22/20 17:33 Freq: Status: Active Protocol: Document 02/04/21 14:36 DCW (Rec: 02/04/21 15:13 DCW [id number]) Gym Equipment Therapeutic Ball 1 Exercise Details Low Trunk Rotation Ball Size/Color Blue - 45 cm Body Position Supine Therapeutic Exercises Sidelying Exercises 1 Sidelying Exercise Name Open book /c rhythmic stretch at end Side bilateral Manual Therapy Treatment Soft Tissue Mobilization 4 Body Location B Gastroc Mobilization Type Oscillations,Strumming, Sustained Pressure,Other Comments Stretching/tissue elongation Rhythmic initiation 3 Body Location B Adductors Mobilization Type Oscillations,Strumming, Sustained Pressure,Other Comments Stretching/tissue elongation Rhythmic initiation 2 Body Location B Quads Mobilization Type Oscillations,Strumming, Sustained Pressure,Other Comments Stretching/tissue elongation Rhythmic initiation 1 Body Location B Hamstrings Mobilization Type Oscillations,Strumming, Sustained Pressure,Other Comments Stretching/tissue elongation Rhythmic initiation PT-OP-T Assessment and Plan Start: 12/22/20 17:33 Freq: Status: Active Protocol: Document 02/04/21 14:36 DCW (Rec: 02/04/21 15:13 DCW [id number]) Physical Therapy Assessment Impairments Impairments Activity Tolerance,Balance, Coordination,Functional Activities,Functional Mobility ,Gait,Posture,ROM,Soft Tissue Mobility,Strength,Tone, Transfers Goals Four Impairment Pt has suffered multiple falls over the last three months at home Custodial Goal (LTG) Pt to report no falls at home for one month LTG Duration 03/22/21 Three Impairment Pt requires Mod Ax1 to perform sit->stand from wheelchair Civil Structural Designer Goal (LTG) Pt to perform CGA sit->stand from wheelchair height to improve independent transfers LTG Duration 03/22/21 Two Impairment Severely limited lower extremity ROM Short Term Goal (STG) Pt to reduce hip flexion contracture to allow hips to rest at neutral to allow for pt to stand up straight STG Duration 02/05/21 Civil Structural Designer Goal (LTG) Bilateral knee AROM to improve to 10?-90? LTG Duration 03/22/21 One Impairment Pt does not have an appropriate home exercise program Short Term Goal (STG) Pt to be independent and compliant with an appropriate HEP STG Duration 02/05/21 Assessment Summary Assessment Pt continues to tolerate treatment well, not having as much difficulty performing his ADLs. Physical Therapy Plan Frequency and Duration Frequency of Treatment 2x/Week Duration of Treatment 90 days Plan of Care Start Date 12/22/20 Plan of Care End Date 03/22/21 Therapeutic Interventions Therapeutic Interventions Balance Training,Coordination Training,Gait Training,Home Exercise Program,Joint Mobilizations,Manual Therapy, Neuromuscular Re-education, Patient/Caregiver Education, Self-Care/Home Management,Soft Tissue Mobilization, Therapeutic Activities, Therapeutic Exercises, Wheelchair Management Modalities Cold Pack/Ice Massage,Electric Stimulation,Hot Packs, Ultrasound Next Visit Focus/Plan Next Note Type Treatment Note Next Visit Plan Balance testing, mobility training, gait training, flexibility/stretching, strengthening
--- NOTE | 2021-02-18 14:31 | PT.OTN ---
Current Diagnoses Cerebral palsy, unspecified (02/18/21) Sarcopenia (02/18/21) Other abnormalities of gait and mobility (02/18/21) Other specified health status (02/18/21) Physical Therapy Treatment Note PT-OP-A Visit Information Start: 12/22/20 17:33 Freq: Status: Active Protocol: Document 02/18/21 13:54 DCW (Rec: 02/18/21 14:30 DCW [id number]) Out-Patient Physical Therapy Visit Information Visit Information Visit Type Treatment Note Visit Note 10 min late Visit Start Time 13:55 Visit Stop Time 14:30 Total Visit Minutes 35 Visit Number 10 Number of MEDICAL RECORD TECHNICIAN Visits 0 Evaluation Information Evaluation Date 12/22/20 PT-OP-B Current Condition Start: 12/22/20 17:33 Freq: Status: Active Protocol: Document 12/22/20 13:45 DCW (Rec: 12/22/20 17:44 DCW [id number]) Current Condition History of Current Condition Onset Date Life-long history of CP Current Complaints Cerebral Palsy, deconditioning , rigidity/stiffness, declining mobility History of Current Condition Pt is a 55 year old male presenting with a life-long history of Cerebral Palsy. Pt notes that over the past few years, his mobility, flexibility, and gait have all begun to decline, however it has significantly worsened over the last one year. Pt notes that ~10 year ago, he started using more mobility aides, like a scooter and a lift in his vehicle, but then I wasn't working myself, so I started to get worse. Pt notes that with all the shut- downs and quarantine, he has been spending even more time sitting around, and has gotten much worse. Pt notes that he had been using a cane around his house, and a walker out in the community, but gradually over the last year he has had to transition to a walker at home and a wheelchair in the community, as well as his mobility scooter when out for longer periods of time, like when grocery shopping. Even with using a walker, he has been falling a lot more the last three months. Pt has also been having significant SOB recently, and has been struggling more with his speech, which is currently very slowed, labored, and slurred. A year and a half ago, I was able to speak. It slurred a bit, but never to this point. Treatment Goals Patient/Caregiver Goals I need to loosen up and get stronger so I can move better. PT-OP-C Subjective Start: 12/22/20 17:33 Freq: Status: Active Protocol: Document 02/18/21 13:54 DCW (Rec: 02/18/21 14:30 DCW [id number]) OP-PT Subjective Patient Comments Patient Comments Pt notes he has had a long day. PT-OP-D Balance Start: 12/22/20 17:33 Freq: Status: Active Protocol: Document 12/22/20 13:45 DCW (Rec: 12/22/20 17:46 DCW [id number]) Tinetti Balance Assessment Gait and Step Initiation of Gait Hesitancy, mult. attempts Right Foot Step Length Does pass stance foot Right Foot Step Height Completely clears floor Left Foot Step Length Does not pass stance foot Left Foot Step Height Does not clear floor Step Description Step Symmetry Step length not equal Step Continuity Stopping or discontinuity Gait Description Path Description Marked deviation Trunk Description Marked sway or uses aide Walking Stance Heels apart Scoring and Interpretation Tinetti Composite Score (points) 2 PT-OP-E Functional Tests Start: 12/22/20 17:46 Freq: Status: Active Protocol: Document 12/22/20 13:45 DCW (Rec: 12/22/20 17:47 DCW [id number]) Functional Tests Tinetti Balance and Gait Assessment Gait Score 2 Gait Score Impairment Rating 80 to <100% Impaired (Score 1- 2) PT-OP-F Manual Assessment Start: 12/22/20 17:33 Freq: Status: Active Protocol: Document 12/22/20 13:45 DCW (Rec: 12/22/20 17:56 DCW [id number]) Manual Assessments Joint Mobility Assessment Joint Mobility Assessment Lead-pipe rigidity throughout bilateral lower extremities, severely limiting mobility, gait, transfers PT-OP-G Mobility & Gait Start: 12/22/20 17:33 Freq: Status: Active Protocol: Document 12/22/20 13:45 DCW (Rec: 12/22/20 17:56 DCW [id number]) OP Mobility Evaluation Bed Mobility Supine to and from Sit SBA Transfers Sit to Stand Mod Ax1 /c gait belt, arm rest , standard walker OP Gait Assessment Gait Gait Assistance Required: Contact Guard Assist Distance (Feet) 50 Able to Maintain Weight Bearing Status Yes During Gait Assistive Devices Assistive Device Gait Belt,Standard Walker Gait Deviations General Gait Pattern Ataxic,Decreased Stride Length ,Decreased Feet Clearance, Festinating,Flexed Trunk, Lateral Trunk Lean,Narrow Based Gait,Step-to Gait Factors Limiting Gait Function Factors Limiting Gait Function Abnormal Tonal Influences, Decreased Activity Tolerance, Decreased Strength,Limited Range of Motion,Poor Balance, Poor Safety Awareness, Respiratory Distress Comments Gait Comments Pt ambulates using standard walker, severe rigidity, step- to gait pattern, with right first, left advancing to right . Difficulty advancing left due to toe drag/plantar flexed position due to rigidity, right foot external rotqation to 45? PT-OP-K Range of Motion Start: 12/22/20 17:33 Freq: Status: Active Protocol: Document 12/22/20 13:45 DCW (Rec: 12/22/20 17:56 DCW [id number]) Hip Goniometric Range of Motion Hip Bilateral Comments Pt presents with a hip flexion contracture of 20?, minimal ability to move hips outside of presenting position Knee Goniometric Range of Motion Knee Right Knee ROM WFL No Patient Position Sitting Flexion Active (degrees) 40 Flexion Passive (degrees) 70 Extension Active (degrees) 20 Extension Passive (degrees) 15 Left Knee ROM WFL No Patient Position Sitting Flexion Active (degrees) 52 Flexion Passive (degrees) 74 Extension Active (degrees) 30 Extension Passive (degrees) 24 Knee ROM Limitations Knee ROM Limitations Soft Tissue Tightness, Contracture,Muscle Tone Ankle and Foot Goniometric Range of Motion Ankle and Foot Right Passive Ankle/Foot ROM WFL No Testing Position Sitting Plantarflexion 50 Comments Dorsiflexion -10? from neutral Right Active Ankle/Foot ROM WFL No Testing Position Sitting Plantarflexion 40 Comments Dorsiflexion -20? from neutral Left Passive Ankle/Foot ROM WFL No Testing Position Sitting Dorsiflexion with Knee Extended 0 Plantarflexion 40 Left Active Ankle/Foot ROM WFL No Testing Position Sitting Plantarflexion 30 Comments Dorsiflexion -15? from neutral PT-OP-Q Treatments Start: 12/22/20 17:33 Freq: Status: Active Protocol: Document 02/18/21 13:54 DCW (Rec: 02/18/21 14:30 DCW [id number]) Manual Therapy Treatment Soft Tissue Mobilization 4 Body Location B Gastroc Mobilization Type Oscillations,Strumming, Sustained Pressure,Other Comments Stretching/tissue elongation Rhythmic initiation 3 Body Location B Adductors Mobilization Type Oscillations,Strumming, Sustained Pressure,Other Comments Stretching/tissue elongation Rhythmic initiation 2 Body Location B Quads Mobilization Type Oscillations,Strumming, Sustained Pressure,Other Comments Stretching/tissue elongation Rhythmic initiation 1 Body Location B Hamstrings Mobilization Type Oscillations,Strumming, Sustained Pressure,Other Comments Stretching/tissue elongation Rhythmic initiation PT-OP-T Assessment and Plan Start: 12/22/20 17:33 Freq: Status: Active Protocol: Document 02/18/21 13:54 DCW (Rec: 02/18/21 14:30 DCW [id number]) Physical Therapy Assessment Goals Four Impairment Pt has suffered multiple falls over the last three months at home Knife Machine Operator Goal (LTG) Pt to report no falls at home for one month LTG Duration 03/22/21 Three Impairment Pt requires Mod Ax1 to perform sit->stand from wheelchair Knife Machine Operator Goal (LTG) Pt to perform CGA sit->stand from wheelchair height to improve independent transfers LTG Duration 03/22/21 Two Impairment Severely limited lower extremity ROM Short Term Goal (STG) Pt to reduce hip flexion contracture to allow hips to rest at neutral to allow for pt to stand up straight STG Duration 02/05/21 Retirement Goal (LTG) Bilateral knee AROM to improve to 10?-90? LTG Duration 03/22/21 One Impairment Pt does not have an appropriate home exercise program Short Term Goal (STG) Pt to be independent and compliant with an appropriate HEP STG Duration 02/05/21 Assessment Summary Assessment Pt mentioned during todays session that while he enjoys attending PT here, will probable be transferring care to a PT clinic closer to home, as it is an hour round trip for him currently. Pt reports he will likely want to discharge after his last three scheduled visits. Physical Therapy Plan Frequency and Duration Frequency of Treatment 2x/Week Duration of Treatment 90 days Plan of Care Start Date 12/22/20 Plan of Care End Date 03/22/21 Therapeutic Interventions Therapeutic Interventions Balance Training,Coordination Training,Gait Training,Home Exercise Program,Joint Mobilizations,Manual Therapy, Neuromuscular Re-education, Patient/Caregiver Education, Self-Care/Home Management,Soft Tissue Mobilization, Therapeutic Activities, Therapeutic Exercises, Wheelchair Management Modalities Cold Pack/Ice Massage,Electric Stimulation,Hot Packs, Ultrasound Next Visit Focus/Plan Next Note Type Treatment Note Next Visit Plan Balance testing, mobility training, gait training, flexibility/stretching, strengthening
--- NOTE | 2021-02-20 14:35 | PT.OTN ---
Current Diagnoses Cerebral palsy, unspecified (02/20/21) Sarcopenia (02/20/21) Other abnormalities of gait and mobility (02/20/21) Other specified health status (02/20/21) Physical Therapy Treatment Note PT-OP-A Visit Information Start: 12/22/20 17:33 Freq: Status: Active Protocol: Document 02/20/21 13:47 DCW (Rec: 02/20/21 14:35 DCW [id number]) Out-Patient Physical Therapy Visit Information Visit Information Visit Type Treatment Note Visit Start Time 13:47 Visit Stop Time 14:30 Total Visit Minutes 43 Visit Number 11 Number of LINESPERSON Visits 0 Evaluation Information Evaluation Date 12/22/20 PT-OP-B Current Condition Start: 12/22/20 17:33 Freq: Status: Active Protocol: Document 12/22/20 13:45 DCW (Rec: 12/22/20 17:44 DCW [id number]) Current Condition History of Current Condition Onset Date Life-long history of CP Current Complaints Cerebral Palsy, deconditioning , rigidity/stiffness, declining mobility History of Current Condition Pt is a 55 year old male presenting with a life-long history of Cerebral Palsy. Pt notes that over the past few years, his mobility, flexibility, and gait have all begun to decline, however it has significantly worsened over the last one year. Pt notes that ~10 year ago, he started using more mobility aides, like a scooter and a lift in his vehicle, but then I wasn't working myself, so I started to get worse. Pt notes that with all the shut- downs and quarantine, he has been spending even more time sitting around, and has gotten much worse. Pt notes that he had been using a cane around his house, and a walker out in the community, but gradually over the last year he has had to transition to a walker at home and a wheelchair in the community, as well as his mobility scooter when out for longer periods of time, like when grocery shopping. Even with using a walker, he has been falling a lot more the last three months. Pt has also been having significant SOB recently, and has been struggling more with his speech, which is currently very slowed, labored, and slurred. A year and a half ago, I was able to speak. It slurred a bit, but never to this point. Treatment Goals Patient/Caregiver Goals I need to loosen up and get stronger so I can move better. PT-OP-C Subjective Start: 12/22/20 17:33 Freq: Status: Active Protocol: Document 02/20/21 13:47 DCW (Rec: 02/20/21 14:35 DCW [id number]) OP-PT Subjective Patient Comments Patient Comments Pt reports another long day today. PT-OP-D Balance Start: 12/22/20 17:33 Freq: Status: Active Protocol: Document 12/22/20 13:45 DCW (Rec: 12/22/20 17:46 DCW [id number]) Tinetti Balance Assessment Gait and Step Initiation of Gait Hesitancy, mult. attempts Right Foot Step Length Does pass stance foot Right Foot Step Height Completely clears floor Left Foot Step Length Does not pass stance foot Left Foot Step Height Does not clear floor Step Description Step Symmetry Step length not equal Step Continuity Stopping or discontinuity Gait Description Path Description Marked deviation Trunk Description Marked sway or uses aide Walking Stance Heels apart Scoring and Interpretation Tinetti Composite Score (points) 2 PT-OP-E Functional Tests Start: 12/22/20 17:46 Freq: Status: Active Protocol: Document 12/22/20 13:45 DCW (Rec: 12/22/20 17:47 DCW [id number]) Functional Tests Tinetti Balance and Gait Assessment Gait Score 2 Gait Score Impairment Rating 80 to <100% Impaired (Score 1- 2) PT-OP-F Manual Assessment Start: 12/22/20 17:33 Freq: Status: Active Protocol: Document 12/22/20 13:45 DCW (Rec: 12/22/20 17:56 DCW [id number]) Manual Assessments Joint Mobility Assessment Joint Mobility Assessment Lead-pipe rigidity throughout bilateral lower extremities, severely limiting mobility, gait, transfers PT-OP-G Mobility & Gait Start: 12/22/20 17:33 Freq: Status: Active Protocol: Document 12/22/20 13:45 DCW (Rec: 12/22/20 17:56 DCW [id number]) OP Mobility Evaluation Bed Mobility Supine to and from Sit SBA Transfers Sit to Stand Mod Ax1 /c gait belt, arm rest , standard walker OP Gait Assessment Gait Gait Assistance Required: Contact Guard Assist Distance (Feet) 50 Able to Maintain Weight Bearing Status Yes During Gait Assistive Devices Assistive Device Gait Belt,Standard Walker Gait Deviations General Gait Pattern Ataxic,Decreased Stride Length ,Decreased Feet Clearance, Festinating,Flexed Trunk, Lateral Trunk Lean,Narrow Based Gait,Step-to Gait Factors Limiting Gait Function Factors Limiting Gait Function Abnormal Tonal Influences, Decreased Activity Tolerance, Decreased Strength,Limited Range of Motion,Poor Balance, Poor Safety Awareness, Respiratory Distress Comments Gait Comments Pt ambulates using standard walker, severe rigidity, step- to gait pattern, with right first, left advancing to right . Difficulty advancing left due to toe drag/plantar flexed position due to rigidity, right foot external rotqation to 45? PT-OP-K Range of Motion Start: 12/22/20 17:33 Freq: Status: Active Protocol: Document 12/22/20 13:45 DCW (Rec: 12/22/20 17:56 DCW [id number]) Hip Goniometric Range of Motion Hip Bilateral Comments Pt presents with a hip flexion contracture of 20?, minimal ability to move hips outside of presenting position Knee Goniometric Range of Motion Knee Right Knee ROM WFL No Patient Position Sitting Flexion Active (degrees) 40 Flexion Passive (degrees) 70 Extension Active (degrees) 20 Extension Passive (degrees) 15 Left Knee ROM WFL No Patient Position Sitting Flexion Active (degrees) 52 Flexion Passive (degrees) 74 Extension Active (degrees) 30 Extension Passive (degrees) 24 Knee ROM Limitations Knee ROM Limitations Soft Tissue Tightness, Contracture,Muscle Tone Ankle and Foot Goniometric Range of Motion Ankle and Foot Right Passive Ankle/Foot ROM WFL No Testing Position Sitting Plantarflexion 50 Comments Dorsiflexion -10? from neutral Right Active Ankle/Foot ROM WFL No Testing Position Sitting Plantarflexion 40 Comments Dorsiflexion -20? from neutral Left Passive Ankle/Foot ROM WFL No Testing Position Sitting Dorsiflexion with Knee Extended 0 Plantarflexion 40 Left Active Ankle/Foot ROM WFL No Testing Position Sitting Plantarflexion 30 Comments Dorsiflexion -15? from neutral PT-OP-Q Treatments Start: 12/22/20 17:33 Freq: Status: Active Protocol: Document 02/20/21 13:47 DCW (Rec: 02/20/21 14:35 DCW [id number]) Gym Equipment Therapeutic Ball 1 Exercise Details Low Trunk Rotation Ball Size/Color Blue - 45 cm Body Position Supine Therapeutic Exercises Sidelying Exercises 1 Sidelying Exercise Name Open book /c rhythmic stretch at end Side bilateral Manual Therapy Treatment Soft Tissue Mobilization 4 Body Location B Gastroc Mobilization Type Oscillations,Strumming, Sustained Pressure,Other Comments Stretching/tissue elongation Rhythmic initiation 3 Body Location B Adductors Mobilization Type Oscillations,Strumming, Sustained Pressure,Other Comments Stretching/tissue elongation Rhythmic initiation 2 Body Location B Quads Mobilization Type Oscillations,Strumming, Sustained Pressure,Other Comments Stretching/tissue elongation Rhythmic initiation 1 Body Location B Hamstrings Mobilization Type Oscillations,Strumming, Sustained Pressure,Other Comments Stretching/tissue elongation Rhythmic initiation PT-OP-T Assessment and Plan Start: 12/22/20 17:33 Freq: Status: Active Protocol: Document 02/20/21 13:47 DCW (Rec: 02/20/21 14:35 DCW [id number]) Physical Therapy Assessment Impairments Impairments Activity Tolerance,Balance, Coordination,Functional Activities,Functional Mobility ,Gait,Posture,ROM,Soft Tissue Mobility,Strength,Tone, Transfers Goals Four Impairment Pt has suffered multiple falls over the last three months at home Fpc Goal (LTG) Pt to report no falls at home for one month LTG Duration 03/22/21 Three Impairment Pt requires Mod Ax1 to perform sit->stand from wheelchair Fpc Goal (LTG) Pt to perform CGA sit->stand from wheelchair height to improve independent transfers LTG Duration 03/22/21 Two Impairment Severely limited lower extremity ROM Short Term Goal (STG) Pt to reduce hip flexion contracture to allow hips to rest at neutral to allow for pt to stand up straight STG Duration 02/05/21 Pool Table Operator Goal (LTG) Bilateral knee AROM to improve to 10?-90? LTG Duration 03/22/21 One Impairment Pt does not have an appropriate home exercise program Short Term Goal (STG) Pt to be independent and compliant with an appropriate HEP STG Duration 02/05/21 Assessment Summary Assessment Pt a little tighter today, had more resistance to stretching and had to advance both legs simultaneously instead of is usual step-to, but was walking much better after stretching. Physical Therapy Plan Frequency and Duration Frequency of Treatment 2x/Week Duration of Treatment 90 days Plan of Care Start Date 12/22/20 Plan of Care End Date 03/22/21 Therapeutic Interventions Therapeutic Interventions Balance Training,Coordination Training,Gait Training,Home Exercise Program,Joint Mobilizations,Manual Therapy, Neuromuscular Re-education, Patient/Caregiver Education, Self-Care/Home Management,Soft Tissue Mobilization, Therapeutic Activities, Therapeutic Exercises, Wheelchair Management Modalities Cold Pack/Ice Massage,Electric Stimulation,Hot Packs, Ultrasound Next Visit Focus/Plan Next Note Type Treatment Note Next Visit Plan Balance testing, mobility training, gait training, flexibility/stretching, strengthening
--- NOTE | 2021-02-27 14:33 | PT.OTN ---
Current Diagnoses Cerebral palsy, unspecified (02/27/21) Sarcopenia (02/27/21) Other abnormalities of gait and mobility (02/27/21) Other specified health status (02/27/21) Physical Therapy Treatment Note PT-OP-A Visit Information Start: 12/22/20 17:33 Freq: Status: Active Protocol: Document 02/27/21 13:45 DCW (Rec: 02/27/21 14:33 DCW [id number]) Out-Patient Physical Therapy Visit Information Visit Information Visit Type Treatment Note Visit Start Time 13:45 Visit Stop Time 14:30 Total Visit Minutes 45 Visit Number 12 Number of PECAN SHELLER Visits 0 Evaluation Information Evaluation Date 12/22/20 PT-OP-B Current Condition Start: 12/22/20 17:33 Freq: Status: Active Protocol: Document 12/22/20 13:45 DCW (Rec: 12/22/20 17:44 DCW [id number]) Current Condition History of Current Condition Onset Date Life-long history of CP Current Complaints Cerebral Palsy, deconditioning , rigidity/stiffness, declining mobility History of Current Condition Pt is a 55 year old male presenting with a life-long history of Cerebral Palsy. Pt notes that over the past few years, his mobility, flexibility, and gait have all begun to decline, however it has significantly worsened over the last one year. Pt notes that ~10 year ago, he started using more mobility aides, like a scooter and a lift in his vehicle, but then I wasn't working myself, so I started to get worse. Pt notes that with all the shut- downs and quarantine, he has been spending even more time sitting around, and has gotten much worse. Pt notes that he had been using a cane around his house, and a walker out in the community, but gradually over the last year he has had to transition to a walker at home and a wheelchair in the community, as well as his mobility scooter when out for longer periods of time, like when grocery shopping. Even with using a walker, he has been falling a lot more the last three months. Pt has also been having significant SOB recently, and has been struggling more with his speech, which is currently very slowed, labored, and slurred. A year and a half ago, I was able to speak. It slurred a bit, but never to this point. Treatment Goals Patient/Caregiver Goals I need to loosen up and get stronger so I can move better. PT-OP-C Subjective Start: 12/22/20 17:33 Freq: Status: Active Protocol: Document 02/27/21 13:45 DCW (Rec: 02/27/21 14:33 DCW [id number]) OP-PT Subjective Patient Comments Patient Comments Pt is planning to transfer care to a PT clinic closer to his home in [place], but was not able to get scheduled until March 23. He would like to schedule a few more appointments to bridge the gap between stopping here and starting there. PT-OP-D Balance Start: 12/22/20 17:33 Freq: Status: Active Protocol: Document 12/22/20 13:45 DCW (Rec: 12/22/20 17:46 DCW [id number]) Tinetti Balance Assessment Gait and Step Initiation of Gait Hesitancy, mult. attempts Right Foot Step Length Does pass stance foot Right Foot Step Height Completely clears floor Left Foot Step Length Does not pass stance foot Left Foot Step Height Does not clear floor Step Description Step Symmetry Step length not equal Step Continuity Stopping or discontinuity Gait Description Path Description Marked deviation Trunk Description Marked sway or uses aide Walking Stance Heels apart Scoring and Interpretation Tinetti Composite Score (points) 2 PT-OP-E Functional Tests Start: 12/22/20 17:46 Freq: Status: Active Protocol: Document 12/22/20 13:45 DCW (Rec: 12/22/20 17:47 DCW [id number]) Functional Tests Tinetti Balance and Gait Assessment Gait Score 2 Gait Score Impairment Rating 80 to <100% Impaired (Score 1- 2) PT-OP-F Manual Assessment Start: 12/22/20 17:33 Freq: Status: Active Protocol: Document 12/22/20 13:45 DCW (Rec: 12/22/20 17:56 DCW [id number]) Manual Assessments Joint Mobility Assessment Joint Mobility Assessment Lead-pipe rigidity throughout bilateral lower extremities, severely limiting mobility, gait, transfers PT-OP-G Mobility & Gait Start: 12/22/20 17:33 Freq: Status: Active Protocol: Document 12/22/20 13:45 DCW (Rec: 12/22/20 17:56 DCW [id number]) OP Mobility Evaluation Bed Mobility Supine to and from Sit SBA Transfers Sit to Stand Mod Ax1 /c gait belt, arm rest , standard walker OP Gait Assessment Gait Gait Assistance Required: Contact Guard Assist Distance (Feet) 50 Able to Maintain Weight Bearing Status Yes During Gait Assistive Devices Assistive Device Gait Belt,Standard Walker Gait Deviations General Gait Pattern Ataxic,Decreased Stride Length ,Decreased Feet Clearance, Festinating,Flexed Trunk, Lateral Trunk Lean,Narrow Based Gait,Step-to Gait Factors Limiting Gait Function Factors Limiting Gait Function Abnormal Tonal Influences, Decreased Activity Tolerance, Decreased Strength,Limited Range of Motion,Poor Balance, Poor Safety Awareness, Respiratory Distress Comments Gait Comments Pt ambulates using standard walker, severe rigidity, step- to gait pattern, with right first, left advancing to right . Difficulty advancing left due to toe drag/plantar flexed position due to rigidity, right foot external rotqation to 45? PT-OP-K Range of Motion Start: 12/22/20 17:33 Freq: Status: Active Protocol: Document 12/22/20 13:45 DC (Rec: 12/22/20 17:56 [facility] [id number]) Hip Goniometric Range of Motion Hip Bilateral Comments Pt presents with a hip flexion contracture of 20?, minimal ability to move hips outside of presenting position Knee Goniometric Range of Motion Knee Right Knee ROM WFL No Patient Position Sitting Flexion Active (degrees) 40 Flexion Passive (degrees) 70 Extension Active (degrees) 20 Extension Passive (degrees) 15 Left Knee ROM WFL No Patient Position Sitting Flexion Active (degrees) 52 Flexion Passive (degrees) 74 Extension Active (degrees) 30 Extension Passive (degrees) 24 Knee ROM Limitations Knee ROM Limitations Soft Tissue Tightness, Contracture,Muscle Tone Ankle and Foot Goniometric Range of Motion Ankle and Foot Right Passive Ankle/Foot ROM WFL No Testing Position Sitting Plantarflexion 50 Comments Dorsiflexion -10? from neutral Right Active Ankle/Foot ROM WFL No Testing Position Sitting Plantarflexion 40 Comments Dorsiflexion -20? from neutral Left Passive Ankle/Foot ROM WFL No Testing Position Sitting Dorsiflexion with Knee Extended 0 Plantarflexion 40 Left Active Ankle/Foot ROM WFL No Testing Position Sitting Plantarflexion 30 Comments Dorsiflexion -15? from neutral PT-OP-Q Treatments Start: 12/22/20 17:33 Freq: Status: Active Protocol: Document 02/27/21 13:45 DCW (Rec: 02/27/21 14:33 DCW [id number]) Gym Equipment Therapeutic Ball 1 Exercise Details Low Trunk Rotation Ball Size/Color Blue - 45 cm Body Position Supine Therapeutic Exercises Sidelying Exercises 1 Sidelying Exercise Name Open book /c rhythmic stretch at end Side bilateral Manual Therapy Treatment Soft Tissue Mobilization 4 Body Location B Gastroc Mobilization Type Oscillations,Strumming, Sustained Pressure,Other Comments Stretching/tissue elongation Rhythmic initiation 3 Body Location B Adductors Mobilization Type Oscillations,Strumming, Sustained Pressure,Other Comments Stretching/tissue elongation Rhythmic initiation 2 Body Location B Quads Mobilization Type Oscillations,Strumming, Sustained Pressure,Other Comments Stretching/tissue elongation Rhythmic initiation 1 Body Location B Hamstrings Mobilization Type Oscillations,Strumming, Sustained Pressure,Other Comments Stretching/tissue elongation Rhythmic initiation PT-OP-T Assessment and Plan Start: 12/22/20 17:33 Freq: Status: Active Protocol: Document 02/27/21 13:45 DCW (Rec: 02/27/21 14:33 DCW [id number]) Physical Therapy Assessment Impairments Impairments Activity Tolerance,Balance, Coordination,Functional Activities,Functional Mobility ,Gait,Posture,ROM,Soft Tissue Mobility,Strength,Tone, Transfers Goals Four Impairment Pt has suffered multiple falls over the last three months at home Day Care Supervisor Goal (LTG) Pt to report no falls at home for one month LTG Duration 03/22/21 Three Impairment Pt requires Mod Ax1 to perform sit->stand from wheelchair Day Care Supervisor Goal (LTG) Pt to perform CGA sit->stand from wheelchair height to improve independent transfers LTG Duration 03/22/21 Two Impairment Severely limited lower extremity ROM Short Term Goal (STG) Pt to reduce hip flexion contracture to allow hips to rest at neutral to allow for pt to stand up straight STG Duration 02/05/21 Day Care Supervisor Goal (LTG) Bilateral knee AROM to improve to 10?-90? LTG Duration 03/22/21 One Impairment Pt does not have an appropriate home exercise program Short Term Goal (STG) Pt to be independent and compliant with an appropriate HEP STG Duration 02/05/21 Assessment Summary Assessment Pt still doing well with not falling since since he started therapy. Increased flexibility overall in LEs Physical Therapy Plan Frequency and Duration Frequency of Treatment 2x/Week Duration of Treatment 90 days Plan of Care Start Date 12/22/20 Plan of Care End Date 03/22/21 Therapeutic Interventions Therapeutic Interventions Balance Training,Coordination Training,Gait Training,Home Exercise Program,Joint Mobilizations,Manual Therapy, Neuromuscular Re-education, Patient/Caregiver Education, Self-Care/Home Management,Soft Tissue Mobilization, Therapeutic Activities, Therapeutic Exercises, Wheelchair Management Modalities Cold Pack/Ice Massage,Electric Stimulation,Hot Packs, Ultrasound Next Visit Focus/Plan Next Note Type Treatment Note Next Visit Plan Balance testing, mobility training, gait training, flexibility/stretching, strengthening
--- NOTE | 2021-03-12 13:17 | PT-OP ANOTE ---
Pt did not show or appt today, left message regarding. Reminded of next appt on 03/20 at 1030 with REGIONAL EDUCATION MANAGER Анна which will be last scheduled appt and transferring care to PT clinic closer to home in [place].
--- NOTE | 2021-04-22 17:28 | PT.OPDS ---
Current Diagnoses Cerebral palsy, unspecified (02/27/21) Sarcopenia (02/27/21) Other abnormalities of gait and mobility (02/27/21) Other specified health status (02/27/21) Visit Care Team Role Provider Type AUNDREA Zuñiga Attending Provider Advanced Director Of Counseling Primary Care Provider Referring Provider Specialty: Family Practice Address: [address] [place] [address], [facility] Email: [email or web address] Visit Number Visit Number 12 Discharge Summary PT-OP-B Current Condition Start: 12/22/20 17:33 Freq: Status: Active Protocol: Document 12/22/20 13:45 DCW (Rec: 12/22/20 17:44 DCW [id number]) Current Condition History of Current Condition Onset Date Life-long history of CP Current Complaints Cerebral Palsy, deconditioning , rigidity/stiffness, declining mobility History of Current Condition Pt is a 55 year old male presenting with a life-long history of Cerebral Palsy. Pt notes that over the past few years, his mobility, flexibility, and gait have all begun to decline, however it has significantly worsened over the last one year. Pt notes that ~10 year ago, he started using more mobility aides, like a scooter and a lift in his vehicle, but then I wasn't working myself, so I started to get worse. Pt notes that with all the shut- downs and quarantine, he has been spending even more time sitting around, and has gotten much worse. Pt notes that he had been using a cane around his house, and a walker out in the community, but gradually over the last year he has had to transition to a walker at home and a wheelchair in the community, as well as his mobility scooter when out for longer periods of time, like when grocery shopping. Even with using a walker, he has been falling a lot more the last three months. Pt has also been having significant SOB recently, and has been struggling more with his speech, which is currently very slowed, labored, and slurred. A year and a half ago, I was able to speak. It slurred a bit, but never to this point. Treatment Goals Patient/Caregiver Goals I need to loosen up and get stronger so I can move better. PT-OP-C Subjective Start: 12/22/20 17:33 Freq: Status: Active Protocol: Document 02/27/21 13:45 DCW (Rec: 02/27/21 14:33 DCW [id number]) OP-PT Subjective Patient Comments Patient Comments Pt is planning to transfer care to a PT clinic closer to his home in [place], but was not able to get scheduled until March 23. He would like to schedule a few more appointments to bridge the gap between stopping here and starting there. PT-OP-D Balance Start: 12/22/20 17:33 Freq: Status: Active Protocol: Document 12/22/20 13:45 DCW (Rec: 12/22/20 17:46 DCW [id number]) Tinetti Balance Assessment Gait and Step Initiation of Gait Hesitancy, mult. attempts Right Foot Step Length Does pass stance foot Right Foot Step Height Completely clears floor Left Foot Step Length Does not pass stance foot Left Foot Step Height Does not clear floor Step Description Step Symmetry Step length not equal Step Continuity Stopping or discontinuity Gait Description Path Description Marked deviation Trunk Description Marked sway or uses aide Walking Stance Heels apart Scoring and Interpretation Tinetti Composite Score (points) 2 PT-OP-E Functional Tests Start: 12/22/20 17:46 Freq: Status: Active Protocol: Document 12/22/20 13:45 DCW (Rec: 12/22/20 17:47 DCW [id number]) Functional Tests Tinetti Balance and Gait Assessment Gait Score 2 Gait Score Impairment Rating 80 to <100% Impaired (Score 1- 2) PT-OP-F Manual Assessment Start: 12/22/20 17:33 Freq: Status: Active Protocol: Document 12/22/20 13:45 DCW (Rec: 12/22/20 17:56 DCW [id number]) Manual Assessments Joint Mobility Assessment Joint Mobility Assessment Lead-pipe rigidity throughout bilateral lower extremities, severely limiting mobility, gait, transfers PT-OP-G Mobility & Gait Start: 12/22/20 17:33 Freq: Status: Active Protocol: Document 12/22/20 13:45 DCW (Rec: 12/22/20 17:56 DCW [id number]) OP Mobility Evaluation Bed Mobility Supine to and from Sit SBA Transfers Sit to Stand Mod Ax1 /c gait belt, arm rest , standard walker OP Gait Assessment Gait Gait Assistance Required: Contact Guard Assist Distance (Feet) 50 Able to Maintain Weight Bearing Status Yes During Gait Assistive Devices Assistive Device Gait Belt,Standard Walker Gait Deviations General Gait Pattern Ataxic,Decreased Stride Length ,Decreased Feet Clearance, Festinating,Flexed Trunk, Lateral Trunk Lean,Narrow Based Gait,Step-to Gait Factors Limiting Gait Function Factors Limiting Gait Function Abnormal Tonal Influences, Decreased Activity Tolerance, Decreased Strength,Limited Range of Motion,Poor Balance, Poor Safety Awareness, Respiratory Distress Comments Gait Comments Pt ambulates using standard walker, severe rigidity, step- to gait pattern, with right first, left advancing to right . Difficulty advancing left due to toe drag/plantar flexed position due to rigidity, right foot external rotqation to 45? PT-OP-K Range of Motion Start: 12/22/20 17:33 Freq: Status: Active Protocol: Document 12/22/20 13:45 DCW (Rec: 12/22/20 17:56 DCW [id number]) Hip Goniometric Range of Motion Hip Bilateral Comments Pt presents with a hip flexion contracture of 20?, minimal ability to move hips outside of presenting position Knee Goniometric Range of Motion Knee Right Knee ROM WFL No Patient Position Sitting Flexion Active (degrees) 40 Flexion Passive (degrees) 70 Extension Active (degrees) 20 Extension Passive (degrees) 15 Left Knee ROM WFL No Patient Position Sitting Flexion Active (degrees) 52 Flexion Passive (degrees) 74 Extension Active (degrees) 30 Extension Passive (degrees) 24 Knee ROM Limitations Knee ROM Limitations Soft Tissue Tightness, Contracture,Muscle Tone Ankle and Foot Goniometric Range of Motion Ankle and Foot Right Passive Ankle/Foot ROM WFL No Testing Position Sitting Plantarflexion 50 Comments Dorsiflexion -10? from neutral Right Active Ankle/Foot ROM WFL No Testing Position Sitting Plantarflexion 40 Comments Dorsiflexion -20? from neutral Left Passive Ankle/Foot ROM WFL No Testing Position Sitting Dorsiflexion with Knee Extended 0 Plantarflexion 40 Left Active Ankle/Foot ROM WFL No Testing Position Sitting Plantarflexion 30 Comments Dorsiflexion -15? from neutral PT-OP-T Assessment and Plan Start: 12/22/20 17:33 Freq: Status: Active Protocol: Document 04/22/21 17:26 DCW (Rec: 04/22/21 17:27 DCW [id number]) Physical Therapy Assessment Assessment Summary Assessment Pt's plan is to switch care to a different facility closer to home, will be discharged from skilled PT at this time. Physical Therapy Plan Discharge Physical Therapy Discharge Reasons Patient Request Next Visit Focus/Plan Next Note Type Discharge Summary
== END 2021-04-23 07:58 | disposition home or self-care (01) ==
LOC: PHYS 13:45
PROVIDERS: PCP Nurse Practitioner; Referring Provider Nurse Practitioner; Visit Provider Nurse Practitioner
DX: M62.84 Sarcopenia (principal); G80.9 Cerebral palsy, unspecified; Z78.9 Other specified health status; R26.89 Other abnormalities of gait and mobility
CPT/HCPCS: 97110; 97140; 97163

== ENCOUNTER → 2021-05-04 15:54 | Outpatient (CLI) | payer OTHER, SELFPAY ==
[2021-05-04 17:44] LABS: Alanine Aminotransferase 29 IU/L (<50); Albumin 4.5 g/dL (3.5-5.0); Albumin Globulin Ratio 1.8 (1.0-2.8); Alkaline Phosphatase 51 U/L (38-126); Aspartate Aminotransferase 34 IU/L (17-59); BUN Creatinine Ratio 25.5 (6-22); Bilirubin Total 0.9 mg/dL (0.2-1.3); Blood Urea Nitrogen 12 mg/dL (9-20); Calcium 9.9 mg/dL (8.4-10.2); Carbon Dioxide 24 mmol/L (22-32); Chloride 105 mmol/L (98-107); Estimated Glomerular Filt Rate > 60.0 mL/min (>60); Globulin 2.5 g/dL (1.7-4.1); Glucose 89 mg/dL (70-100); HEMOLYSIS < 15 (0-50); Potassium 4.1 mmol/L (3.4-5.1); Sodium 139 mmol/L (137-145)
== END ==
PROVIDERS: PCP Nurse Practitioner; Referring Provider Nurse Practitioner; Visit Provider Nurse Practitioner
DX: Z01.812 Encounter for preprocedural laboratory examination (principal)
CPT/HCPCS: 36415; 80053

== ENCOUNTER → 2021-05-12 09:24 | Outpatient (CLI) | payer OTHER, SELFPAY ==
--- NOTE | 2021-05-12 09:25 | DI.MRI.S_ITS ---
PROCEDURE: MR HEAD/BRAIN WO CON INDICATIONS: Progressive neurological defecit TECHNIQUE: Noncontrast axial T1 spin echo, axial T2 fast spin echo, sagittal and axial FLAIR, axial gradient echo, axial diffusion and ADC through the brain. COMPARISON: None. FINDINGS: Image quality: Mildly degraded by patient motion artifact. CSF Spaces: Basal cisterns are patent. No extra-axial fluid collections. Ventricles are normal in size and shape. Brain: No intracranial masses or hemorrhage. There is mild, diffuse cerebral volume loss. Velarde/white matter interface is normal. Brainstem appears normal. Diffusion-weighted images demonstrate no acute ischemic insult. No chronic ischemic insults. No GRE weighted abnormalities identified in the brain parenchyma. Normal intravascular flow voids are present. Skull and face: Calvarium has normal marrow signal. Orbits appear normal. Sinuses: Sinuses and mastoids are clear. IMPRESSION: 1. No acute intracranial disease process. 2. No areas of acute or chronic infarction. 3. No abnormal intracranial mass or mass effect. 4. No intracranial hemorrhage. Dictated by: Renee Brown MD, PhD on 05/12/2021 at 10:46 Approved by: Renee Brown MD, PhD on 05/12/2021 at 10:48
== END ==
PROVIDERS: PCP Nurse Practitioner; Referring Provider Nurse Practitioner; Visit Provider Nurse Practitioner
DX: R29.818 Other symptoms and signs involving the nervous system (principal); G80.9 Cerebral palsy, unspecified; R13.10 Dysphagia, unspecified; R26.89 Other abnormalities of gait and mobility; R63.4 Abnormal weight loss; Z78.9 Other specified health status
CPT/HCPCS: 70551